=== PATIENT | female | born 2000 | race Caucasian/White ===

== ENCOUNTER 2022-01-09 17:59 | Emergency (ER) | payer BC, SELFPAY ==
[2022-01-09 18:23] VITALS: BP 155/98; PULSE 105; RESP 18; TEMP 36.9; O2SAT 97; BMI 21.0
--- NOTE | 2022-01-09 18:57 | ED.AMS ---
HPI - Altered Mental Status General Chief Complaint: Altered Mental Status Stated Complaint: Mental Health Time Seen by Provider: 01/09/22 18:13 History of Present Illness HPI narrative: This 21-year-old female comes in with her father for a mental health assessment. She took the vehicle from home and drove into the [facility]. She stopped the car and turned off but left it in drive. Her father states that she has not been sleeping for the past several nights and wonders if she is having a manic episode. The patient speaks about God and [place]. Her thoughts are rambling. She wants to create an embolism for herself and states that she wants to empower certain friends and make them bili in errors. Her thoughts are sometimes grandiose and certainly are disjointed. She denies taking any street drugs except for some weed. She denies using any alcohol. She is taking Zoloft as prescribed. She has under gone the beginnings of trans gender surgery. She had a vaginoplasty done a while back and to be regularly dilating herself. She denies being unsafe to herself. Her father is concerned about a distinct increase of random and grandiose thoughts along with lack of sleep. Related Data Home Medications Medication Instructions Recorded Confirmed estradiol PO TID 01/09/22 sertraline 50 mg tablet 25 mg PO DAILY 01/09/22 01/09/22 Allergies Allergy/AdvReac Type Severity Reaction Status Date / Time No Known Drug Allergies Allergy Verified 01/09/22 18:32 Review of Systems Status of ROS: Reports: 10 or more systems reviewed and unremarkable except as noted in History and below Narrative: Constitutional: No fevers, no weight gain or loss. Eyes: No discharge. No vision changes. HENT: No congestion, no sore throat, no ear pain. Cardiovascular: No chest pain, no palpitations. Respiratory: No shortness of breath, no wheezes, no cough. Gastrointestinal: No abdominal pain, no vomiting, no diarrhea. Genitourinary: No dysuria, no hematuria. Musculoskeletal: Normal range of motion. Skin: No rashes, no pruritis. Neurological: No dizziness, weakness, sensory change, speech change. Endo/Heme/Allergies: No bruising or bleeding. No polydipsia. Pysch: no suicidality. She does have insomnia recently. All other systems reviewed and are negative. PFSH PFSH Social History Smoking Status: Former smoker Do you use any of these nicotine containing products: None How often do you have a drink containing alcohol: never AUDIT-C Alcohol total score: 0 Non-prescribed substance use: marijuana (any form) service: No Exam Narrative: Exam Narrative: Constitutional: Well-developed, well-nourished, no acute distress. HEENT: Normocephalic, atraumatic. Neck: Normal range of motion. Nontender. Supple. Heart: Regular. No murmurs. Normal rate. Intact distal pulses. Lungs: Clear to auscultation. No chest discomfort. No wheezes, rhonchi, or rales. Abdomen: Normal bowel sounds. Nontender. No rebound tenderness. Genitalia: Deferred. Back: No midline tenderness. Normal range of motion. Extremities: Normal range of motion. No injury. Skin: Intact. No rash. Warm. No erythema or pallor. Neurologic: No altered sensation. No weakness. Alert and oriented. Psychiatric: She denies suicidality. She has random and sometimes grandiose thoughts. She switches between subjects freely. Her answers to my questions are disjointed such that it is very unclear what question she was trying to answer. Nursing notes and vitals signs are reviewed. Const: Vital Signs, click to edit/add: Vital Signs - 24 hr 01/09/22 18:23 01/09/22 21:36 01/09/22 23:48 Temperature 98.5 F 98.7 F 98.6 F Pulse Rate [Pulse Oximeter] 105 H 91 117 H Respiratory Rate 18 18 18 Blood Pressure [Le ft Upper Arm] 155/98 H 128/89 135/114 H Pulse Oximetry 97 98 98 Oxygen Delivery Me thod Room Air Room Air Room Air Course Vital Signs Vital signs: Initial Vital Signs Temperature 98.5 F 01/09/22 18:23 Temperature Source Temporal Artery Scan 01/09/22 18:23 Pulse Rate 105 H 01/09/22 18:23 Respiratory Rate 18 01/09/22 18:23 Blood Pressure 155/98 H 01/09/22 18:23 Blood Pressure Mean 117 01/09/22 18:23 Blood Pressure Position Sitting 01/09/22 18:23 Pulse Oximetry 97 01/09/22 18:23 Oxygen Delivery Method 01/09/22 18:23 Vital Signs Temperature 98.5 F 01/09/22 18:23 Pulse Rate 105 H 01/09/22 18:23 Respiratory Rate 18 01/09/22 18:23 Blood Pressure 155/98 H 01/09/22 18:23 Pulse Oximetry 97 01/09/22 18:23 Oxygen Delivery Method 01/09/22 18:23 Temperature 98.6 F 01/09/22 23:48 Pulse Rate 117 H 01/09/22 23:48 Respiratory Rate 18 01/09/22 23:48 Blood Pressure 135/114 H 01/09/22 23:48 Pulse Oximetry 98 01/09/22 23:48 Oxygen Delivery Method 01/09/22 23:48 MDM - Altered Mental Status MDM Narrative Medical decision making narrative: This patient comes in for psychiatric evaluation. She is exhibiting symptoms typical of a manic episode. She is pleasant and cooperative but has frequent discussions about God and [place] and some grandiose statements. She is not sleeping much at night. A [facility] mental assessment was conducted and arrangements are being made for transfer into an inpatient psych facility. The patient is not under a 72 hour hold but is holdable. She is agreeing with this plan and is cooperative. She is medically cleared for this to occur. This process continues at the end of my shift and care is transferred to the next ER physician. Lab Data Labs: Lab Results 01/09/22 01/09/22 01/09/22 Range/Units 20:45 21:00 21:00 WBC 8.48 (4.50-11.00) K/uL RBC 4.84 (4.00-5.20) m/uL Hgb 13.5 (12.0-16.0) gm/dL Hct 38.5 (33.0-51.0) % MCV 80 (80-100) fL MCH 28 (26-34) pg MCHC 35 (32-36) gm/dL RDW Coeff of Grecia 11.9 (11.5-15.5) % Plt Count 234 (140-440) K/uL Neut % (Auto) 63.7 (42.0-72.0) % Lymph % (Auto) 28.3 (20-44) % Bryan % (Auto) 7.4 (0.0-11.0) % Eos % (Auto) 0.4 (0.0-7.0) % Baso % (Auto) 0.2 (0.0-3.0) % Neut # (Auto) 5.40 (1.7-7.0) K/uL Lymph # (Auto) 2.40 (0.90-2.90) K/uL Bryan # (Auto) 0.60 (0.00-0.90) K/UL Eos # (Auto) 0.03 (0.00-0.50) K/uL Baso # (Auto) 0.02 (0.00-0.30) K/uL Abs Immat Gran (auto) 0.00 (0.00-0.30) K/uL Sodium 137 (135-149) mmol/L Potassium 3.7 (3.6-5.1) mmol/L Chloride 101 (96-114) mmol/L Carbon Dioxide 23 (20-32) mmol/L BUN 7 (5-24) mg/dL Creatinine 0.6 (0.6-1.2) mg/dL Estimated Creat Clear 140.39 Estimated GFR 133 ml/min Glucose 103 (60-115) mg/dL Calcium 9.7 (8.7-10.8) mg/dL TSH (0.270-4.20) uIU/mL HCG, Qual (Negative) Urine Opiates Screen (Negative) Ur Oxycodone Screen (Negative) Urine Methadone Screen (Negative) Ur Propoxyphene Screen (Negative) Acetaminophen < 10.0 L (10.0-30.0) ug/mL Ur Barbiturates Screen (Negative) U Tricyclic Antidepress (Negative) Ur Phencyclidine Scrn (Negative) Ur Amphetamines Screen (Negative) U Methamphetamines Scrn (Negative) U Benzodiazepines Scrn (Negative) Urine Cocaine Screen (Negative) U Marijuana (THC) Screen (Negative) Ur Drug Screen Comment SARS-CoV-2 (PCR) Negative SARS-CoV-2 (Negative) 01/09/22 01/09/22 01/09/22 Range/Units 21:00 22:10 23:10 WBC (4.50-11.00) K/uL RBC (4.00-5.20) m/uL Hgb (12.0-16.0) gm/dL Hct (33.0-51.0) % MCV (80-100) fL MCH (26-34) pg MCHC (32-36) gm/dL RDW Coeff of Grecia (11.5-15.5) % Plt Count (140-440) K/uL Neut % (Auto) (42.0-72.0) % Lymph % (Auto) (20-44) % Bryan % (Auto) (0.0-11.0) % Eos % (Auto) (0.0-7.0) % Baso % (Auto) (0.0-3.0) % Neut # (Auto) (1.7-7.0) K/uL Lymph # (Auto) (0.90-2.90) K/uL Bryan # (Auto) (0.00-0.90) K/UL Eos # (Auto) (0.00-0.50) K/uL Baso # (Auto) (0.00-0.30) K/uL Abs Immat Gran (auto) (0.00-0.30) K/uL Sodium (135-149) mmol/L Potassium (3.6-5.1) mmol/L Chloride (96-114) mmol/L Carbon Dioxide (20-32) mmol/L BUN (5-24) mg/dL Creatinine (0.6-1.2) mg/dL Estimated Creat Clear Estimated GFR ml/min Glucose (60-115) mg/dL Calcium (8.7-10.8) mg/dL TSH 2.330 (0.270-4.20) uIU/mL HCG, Qual Negative (Negative) Urine Opiates Screen Negative (Negative) Ur Oxycodone Screen Negative (Negative) Urine Methadone Screen Negative (Negative) Ur Propoxyphene Screen Negative (Negative) Acetaminophen (10.0-30.0) ug/mL Ur Barbiturates Screen Negative (Negative) U Tricyclic Antidepress Negative (Negative) Ur Phencyclidine Scrn Negative (Negative) Ur Amphetamines Screen Negative (Negative) U Methamphetamines Scrn Negative (Negative) U Benzodiazepines Scrn Negative (Negative) Urine Cocaine Screen Negative (Negative) U Marijuana (THC) Screen POSITIVE A* (Negative) Ur Drug Screen Comment See Note SARS-CoV-2 (PCR) (Negative) Discharge Plan Discharge Clinical Impression: Manic episode Condition: Unchanged Prescriptions: No Action sertraline 50 mg tablet 25 mg PO DAILY estradiol PO TID Follow Up/Referrals: Provider,Not a Local [Primary Care Provider] -
[2022-01-09 21:06] LABS: Basophils Absolute Auto 0.02 K/uL (0.00-0.30); Basophils Percent Auto 0.2 % (0.0-3.0); Eosinophils Absolute Auto 0.03 K/uL (0.00-0.50); Eosinophils Percent Auto 0.4 % (0.0-7.0); Hematocrit 38.5 % (33.0-51.0); Hemoglobin* 13.5 gm/dL (12.0-16.0); Lymphocytes Percent Auto 28.3 % (20-44); Mean Corpuscular HGB Conc 35 gm/dL (32-36); Mean Corpuscular Hemoglobin 28 pg (26-34); Mean Corpuscular Volume 80 fL (80-100); Monocytes Percent Auto 7.4 % (0.0-11.0); Neutrophils Percent Auto 63.7 % (42.0-72.0); Platelet Count* 234 K/uL (140-440); RDW Coefficient of Variation % 11.9 % (11.5-15.5); Red Blood Count 4.84 m/uL (4.00-5.20); White Blood Count* 8.48 K/uL (4.50-11.00)
[2022-01-09 21:17] LABS: Slide Review Reflex No
[2022-01-09 21:19] LABS: Potassium* 3.7 mmol/L (3.6-5.1); Sodium* 137 mmol/L (135-149)
[2022-01-09 21:22] LABS: Blood Urea Nitrogen* 7 mg/dL (5-24); Calcium* 9.7 mg/dL (8.7-10.8); Carbon Dioxide* 23 mmol/L (20-32); Creatinine* 0.6 mg/dL (0.6-1.2); Est. Creatinine Clearance* 140.39; Estimated Glomerular Filt Rate 133 ml/min; Glucose* 103 mg/dL (60-115)
[2022-01-09 21:36] VITALS: BP 128/89; PULSE 91; RESP 18; TEMP 37.1; O2SAT 98
[2022-01-09 21:42] LABS: Acetaminophen* < 10.0 ug/mL (10.0-30.0)
[2022-01-09 21:58] LABS: SARS PCR* Negative SARS-CoV-2 (Negative)
[2022-01-09 22:16] LABS: Chloride* 101 mmol/L (96-114)
[2022-01-09 22:35] LABS: Amphetamine Screen Urine Negative (Negative); Barbiturate Screen Urine Negative (Negative); Benzodiazepines Screen Urine Negative (Negative); Cocaine Screen Urine Negative (Negative); Methadone Screen Urine Negative (Negative); Methamphetamines Screen Urine Negative (Negative); Opiate Screen Urine Negative (Negative); Oxycodone Screen Urine Negative (Negative); Phencyclidine Screen Urine Negative (Negative); Tricyclic Antidepressant Urine Negative (Negative)
[2022-01-09 23:04] LABS: Cannabinoid Screen Urine POSITIVE (Negative)
[2022-01-09 23:21] LABS: HCG Qualitative* Negative (Negative)
[2022-01-09 23:48] VITALS: BP 135/114; PULSE 117; RESP 18; TEMP 37; O2SAT 98
--- NOTE | 2022-01-10 00:56 | PC.NURSE ---
[facility] called back, psychiatrist declined patient at this time stating they are unable to meet her needs. Recommended initiating a mood stabilizer and re-evaluating in 12 hours for reassessment of placement in [place].
[2022-01-10] MEDS: DIVALPROEX DELAYED RELEASE 250 MG TABLET PO ×2 (01:19→15:30)
--- NOTE | 2022-01-10 05:36 | PC.NURSE ---
Received call from [facility], concerned over poor intake, requesting documentation of two meals consumed by this afternoon for consideration of acceptance.
--- NOTE | 2022-01-10 06:06 | ED.NURSE ---
Patient opens room door with david on top of hand stating she bears the shay of Robert, when asking what she means she states Robert Nuts repetitively, pt then starts talking about numerous gods,wanting to create good art, become a middle class citizen, and pacing the room while watching tv. pt takes words from the tv and starts rambling merging things together into her sentences from around the room. pt walks out of room numerous times but cooperatively goes back into room when asked. pt asking for water, water given and breakfast order written down for 0700. pt given paper and pen so she can create art, pt sits down and starts to draw, pt continues to ramble even when in room alone.
[2022-01-10] MEDS: LORazepam 1 MG TABLET PO ×2 (06:40→18:45)
[2022-01-10 07:15] VITALS: BP 106/78; PULSE 102; RESP 26; TEMP 37.6; O2SAT 96
--- NOTE | 2022-01-10 07:37 | ED.NURSE ---
is finally sleeping at present. when this nurse arrived on duty at 0700, pt was sitting on the edge of the bed talking to the tv. has flight of ideas and was talking with no direct concept of what is actually taking place with reality in her current state. no real eye contact or appropriate interaction with nurse. was holding a cup. did not move during the check.
[2022-01-10 12:25] LABS: Ethanol* < 0.01 % (0.01-0.03)
--- NOTE | 2022-01-10 14:10 | ED.NURSE ---
hs been sleeping. does repositions self.
--- NOTE | 2022-01-10 14:19 | PC.SOCIAL ---
Social work: Earlier today, checked availability of in-pt mental health beds in the state. Per RN notes, has already been declined by [facility]. [facility] can assess pt again later today and [facility] can assess pt if there is documentation of her eating at least two meals. Called [facility] and was informed there was a possible bed at [facility]. Faxed all requested information and received a call back from [facility] stating they can not accept pt due to the acuity of the patients already on their unit.
[2022-01-10 15:46] VITALS: BP 108/96; PULSE 90; RESP 18; TEMP 36.4; O2SAT 100
--- NOTE | 2022-01-10 16:00 | ED.NURSE ---
did take depakote without any problems. was told to dilate self and states Yes I need to do that. continues to speak to self and talks about pyramid scheme that will inhabit the earth. stares off. is redirectable. was given food-chicken tenders-albanian fries. will not eat at present, mother called and she will be in later.
[2022-01-10] MEDS: estradioL 1 MG TABLET 2 MG PO (17:17)
[2022-01-10] MEDS: SERTRALINE 50 MG TABLET 25 MG PO (17:17)
--- NOTE | 2022-01-10 18:00 | ED.NURSE ---
did eat occitan fries, cookie, milk. was given ensure.
--- NOTE | 2022-01-10 19:00 | ED.NURSE ---
was telling out about things taking over the world. is speaking of unintelligible words. was yelling at tv. dr samuels was in to see and will medicate po. is open to taking medication.
[2022-01-10] MEDS: OLANZapine 5 MG TAB.RAPDIS 10 MG PO (19:20)
--- NOTE | 2022-01-10 21:09 | ED.NURSE ---
Pt did complete dilation process this evening independently. Pt dad and brother were here, dad did speak with Dr. Rodriguez. Pt is sleeping now, vss, admin 2100 medications later after midnight per Dr. Rodriguez.
[2022-01-10 21:12] VITALS: BP 106/68; PULSE 92; RESP 16; TEMP 36.9; O2SAT 96
[2022-01-11] MEDS: estradioL 1 MG TABLET 2 MG PO ×2 (01:38→09:00)
[2022-01-11] MEDS: DIVALPROEX DELAYED RELEASE 250 MG TABLET PO ×2 (01:39→09:00)
[2022-01-11 08:28] VITALS: BP 100/65; PULSE 68; RESP 18; TEMP 36.6; O2SAT 97
--- NOTE | 2022-01-11 08:42 | ED.NURSE ---
was able to eat, had eggs, milk, prado. did need persuading. did call [facility] and they accepted pt by dr thomas. 72 hr hold was placed per dr jose. notice to pt of rights under emergency hospitalization read to pt. will be transported at 1030.
--- NOTE | 2022-01-11 09:03 | ED.NURSE ---
mother is here and shankar is receptive to her being here. she is doing the dilation treatment now.
--- NOTE | 2022-01-11 09:51 | ED.NURSE ---
father has been informed per shannon (x ) that she will be transferred to [facility] ~1030.
[2022-01-11 10:00] VITALS: BP 105/67; PULSE 82; RESP 12; TEMP 36.3; O2SAT 97
--- NOTE | 2022-01-11 10:10 | ED.NURSE ---
ems is here. all belongings, including phone in bag with proof inspector.
--- NOTE | 2022-01-11 10:35 | ED.NURSE ---
report was called to yesica verdin at [facility]. was informed about her needing to dilate herself twice a day and her medication that she had this am.
== END 2022-01-11 10:25 | disposition home or self-care (01) ==
PROVIDERS: Emergency Medicine Emergency Medical Services; Family Medicine; Emergency Provider Family Medicine
DX: F30.2 Manic episode, severe with psychotic symptoms (principal)
CPT/HCPCS: 36415; 80048; 80143; 80306; 82077; 84443; 84703; 85025; 87635; 99284; 99285; A9270

== ENCOUNTER 2023-06-08 10:01 | Emergency (ER) | payer BC, SELFPAY ==
[2023-06-08 10:11] VITALS: BP 132/87; PULSE 102; RESP 18; TEMP 36.8; O2SAT 97; BMI 18.2
[2023-06-08 11:42] LABS: Basophils Absolute Auto 0.01 K/uL (0.00-0.30); Basophils Percent Auto 0.1 % (0.0-3.0); Eosinophils Absolute Auto 0.04 K/uL (0.00-0.50); Eosinophils Percent Auto 0.4 % (0.0-7.0); Hematocrit 39.9 % (33.0-51.0); Hemoglobin* 13.7 gm/dL (12.0-16.0); Immature Granulocytes Abs Auto 0.01 K/uL (0.00-0.30); Immature Granulocytes Pct Auto 0.1 %; Lymphocytes Percent Auto 18.2 % (20-44); Mean Corpuscular HGB Conc 34 gm/dL (32-36); Mean Corpuscular Hemoglobin 29 pg (26-34); Mean Corpuscular Volume 84 fL (80-100); Monocytes Percent Auto 4.1 % (0.0-11.0); Neutrophils Percent Auto 77.1 % (42.0-72.0); Platelet Count* 202 K/uL (140-440); RDW Coefficient of Variation % 12.1 % (11.5-15.5); Red Blood Count 4.76 m/uL (4.00-5.20); White Blood Count* 9.35 K/uL (4.50-11.00)
[2023-06-08] MEDS: LACTATED RINGERS 1000 ML 1,000 ML IV (11:44)
[2023-06-08] MEDS: ONDANSETRON 2 MG/ML inj 4 MG IVP (11:44)
[2023-06-08 11:47] LABS: Slide Review Reflex No
--- NOTE | 2023-06-08 11:59 | ED_ITS ---
HPI - Nausea/Vomiting/Diarrhea General Date Seen: 06/08/23 Chief complaint: Nausea/Vomiting Stated complaint: Vomiting, new medication Time Seen by Provider: 06/08/23 10:40 Source: patient Mode of arrival: ambulatory Limitations: no limitations History of Present Illness HPI Narrative: Patient is a 22-year-old female presenting to the emergency department for nausea and vomiting. She states the symptoms have been going on for the past 2 days. She thinks is related to her multiple recent med changes. She has at multiple psychiatric med changes for her bipolar disease. He states the last med change was a couple days ago can remember which med was changed to. She states since then she has been vomiting quite a bit and has not been able to keep much p.o. intake down at this time. She states just about every time she tries to eat or drink anything she vomits. He is still feeling nauseated at this time but is not taking anything for the nausea. Is also complaining about some diffuse abdominal pain. Denies dysuria, diarrhea, constipation, chest pain, shortness of breath, lightheadedness, dizziness, fevers, chills. No previous abdominal surgeries Related Data Home Medications Medication Instructions Recorded Confirmed sertraline 50 mg tablet 25 mg PO DAILY 01/09/22 01/09/22 estradiol 2 mg tablet 2 mg PO TID 01/10/22 01/10/22 aripiprazole 10 mg tablet 10 mg PO DAILY 06/08/23 06/08/23 Previous Rx's Medication Instructions Recorded ondansetron 4 mg disintegrating 4 mg PO Q6H #20 tabs 06/08/23 tablet Allergies Allergy/AdvReac Type Severity Reaction Status Date / Time No Known Drug Allergies Allergy Verified 01/09/22 18:32 Review of Systems Status of ROS: Reports: 10 or more systems reviewed and unremarkable except as noted in History and below PFSH PFSH Social History Smoking Status: Former smoker Do you use any of these nicotine containing products: None How often do you have a drink containing alcohol: never AUDIT-C Alcohol total score: 0 Non-prescribed substance use: marijuana (any form) service: No Exam Narrative: Exam Narrative: Const: Well-nourished, Well-developed, in mild distress Eyes: PERRL, no conjunctival injection, and symmetrical lids HENT: Atraumatic external nose and ears. Moist mucous membranes. Neck: Symmetric, trachea midline, No thyromegaly. CVS: RRR, No murmurs or gallops. Peripheral pulses 2+ and equal in all extremities RESP: Unlabored respiratory effort. Clear to auscultation bilaterally. GI: Diffuse mild abdominal tenderness, Nondistended, No rebound or guarding. MSK:Extremities w/o deformity, Normal Active ROM Skin: Warm, Dry. No rashes or lesions. Neuro: Normal Muscle tone, No focal neurological deficits. Psych: Awake, Alert, & Oriented x3. Appropriate mood and affect. Const: Vital Signs, click to edit/add: Vital Signs - 24 hr 06/08/23 10:11 Temperature 98.2 F Pulse Rate [Right Pulse Oximeter] 102 H Respiratory Rate 18 Blood Pressure [Ri ght Upper Arm] 132/87 Pulse Oximetry 97 Oxygen Delivery Me thod Room Air Course Vital Signs Vital signs: Initial Vital Signs Temperature 98.2 F 06/08/23 10:11 Temperature Source Temporal Artery Scan 06/08/23 10:11 Pulse Rate 102 H 06/08/23 10:11 Respiratory Rate 18 06/08/23 10:11 Blood Pressure 132/87 06/08/23 10:11 Blood Pressure Mean 102 06/08/23 10:11 Blood Pressure Position Sitting 06/08/23 10:11 Pulse Oximetry 97 06/08/23 10:11 Oxygen Delivery Method Room Air 06/08/23 10:11 Vital Signs Temperature 98.2 F 06/08/23 10:11 Pulse Rate 102 H 06/08/23 10:11 Respiratory Rate 18 06/08/23 10:11 Blood Pressure 132/87 06/08/23 10:11 Pulse Oximetry 97 06/08/23 10:11 Oxygen Delivery Method Room Air 06/08/23 10:11 Temperature 98.2 F 06/08/23 10:11 Pulse Rate 102 H 06/08/23 10:11 Respiratory Rate 18 06/08/23 10:11 Blood Pressure 132/87 06/08/23 10:11 Pulse Oximetry 97 06/08/23 10:11 Oxygen Delivery Method Room Air 06/08/23 10:11 Medications Administered Medications: Generic Name Dose Route Start Last Admin Trade Name Freq PRN Reason Stop Dose Admin Sodium Chloride 1,000 mls @ 1,000 mls/hr 06/08/23 14:15 06/08/23 14:08 0.9 % Sodium Chloride 1000 Ml IV 06/08/23 15:14 1,000 mls/hr .Q1H GLENROY Administration Discontinued Medications Generic Name Dose Route Start Last Admin Trade Name [place] PRN Reason Stop Dose Admin Lactated Ringer's 1,000 mls @ 1,000 mls/hr 06/08/23 11:12 06/08/23 12:17 Lactated Ringers 1000 Ml IV 06/08/23 12:11 Infused .Q1H ONE Infusion Metoclopramide HCl 10 mg 06/08/23 13:13 06/08/23 13:23 Metoclopramide Hcl 5 Mg/Ml Inj IVP 06/08/23 13:14 10 mg ONCE ONE Administration Ondansetron HCl 4 mg 06/08/23 11:12 06/08/23 11:44 Ondansetron 2 Mg/Ml Inj IVP 06/08/23 11:13 4 mg ONCE ONE Administration MDM - Nausea/Vomiting/Diarrhea MDM Narrative Medical decision making narrative: Patient is a 22-year-old female presenting to emergency department for nausea and vomiting. Zofran given she also be given fluids for her dehydration. Ordered CBC, CMP, COVID/flu/RSV, test, lipase. Patient has some improvement in her nausea after the fluids and Zofran. It then quickly came back though. Her lab work shows no concerning findings. No obvious signs of infection. Her urine does have ketones which does show signs of dehydration. I gave her Reglan which helped a little bit but she still was having nausea. Her mother is now in the room and in asked again about surgery patient states she has had no abdominal surgeries but has had a vaginoplasty. With this surgical history what do a CT scan to rule out any concerning abnormalities. The CT shows no concerning findings. There is some relative thickening of the urinary bladder but she is not having no signs of a UTI and urine shows no signs of UTI. Patient will be given other L of fluid event plan is for discharge. Family is agreeable to this plan. Lab Data Labs: Lab Results 06/08/23 06/08/23 Range/Units 11:32 12:42 WBC 9.35 (4.50-11.00) K/uL RBC 4.76 (4.00-5.20) m/uL Hgb 13.7 (12.0-16.0) gm/dL Hct 39.9 (33.0-51.0) % MCV 84 (80-100) fL MCH 29 (26-34) pg MCHC 34 (32-36) gm/dL RDW Coeff of Grecia 12.1 (11.5-15.5) % Plt Count 202 (140-440) K/uL Neut % (Auto) 77.1 H (42.0-72.0) % Lymph % (Auto) 18.2 L (20-44) % Sullivan % (Auto) 4.1 (0.0-11.0) % Eos % (Auto) 0.4 (0.0-7.0) % Baso % (Auto) 0.1 (0.0-3.0) % Neut # (Auto) 7.20 H (1.7-7.0) K/uL Lymph # (Auto) 1.70 (0.90-2.90) K/uL Sullivan # (Auto) 0.40 (0.00-0.90) K/UL Eos # (Auto) 0.04 (0.00-0.50) K/uL Baso # (Auto) 0.01 (0.00-0.30) K/uL Abs Immat Gran (auto) 0.01 (0.00-0.30) K/uL Imm/Tot Granulo (auto) 0.1 % Sodium 136 (135-149) mmol/L Potassium 4.0 (3.6-5.1) mmol/L Chloride 102 (96-114) mmol/L Carbon Dioxide 22 (20-32) mmol/L Anion Gap 12 (7-15) mEq/L BUN 10 (5-24) mg/dL Creatinine 0.6 (0.5-1.5) mg/dL Estimated Creat Clear 128.52 Estimated GFR 132 ml/min Glucose 105 (60-115) mg/dL Calcium 9.9 (8.4-10.6) mg/dL Total Bilirubin 0.6 (0.1-1.5) mg/dL AST 20 (12-35) U/L ALT 11 (4-35) U/L Alkaline Phosphatase 60 (40-150) U/L Total Protein 8.2 (6.0-8.3) g/dL Albumin 4.8 (3.3-5.0) g/dL Lipase 136 (23-300) U/L HCG, Qual Negative (Negative) Urine Color Yellow (Yellow) Urine Appearance Clear (Clear) Urine pH 6.0 (5.0-8.5) Ur Specific [place] 1.020 (1.000-1.030) Urine Protein Negative (Negative) Urine Glucose (UA) Negative (Negative) Urine Ketones 2+ A (Negative) Urine Blood Negative (Negative) Urine Nitrite Negative (Negative) Urine Bilirubin Negative (Negative) Urine Urobilinogen 0.2 (0.2-1.0) Ur Leukocyte Esterase Negative (Negative) Urine RBC 0-2 (0-2) Urine WBC 2-5 (0-5) Ur Squamous Epith Cells Few (None-Few) Urine Bacteria None (None) Urine HCG, Qual Cancelled SARS-CoV-2 (PCR) Negative SARS-CoV-2 (Negative) Influenza Type A (PCR) Negative PCR FLU A (Negative) Influenza Type B (PCR) Negative PCR FLU B (Negative) RSV (PCR) Negative PCR RSV (Negative) Imaging Data CT scan abdomen pelvis: Radiologist's impression: 1. Spleen is at the upper limits of normal in size. 2. Gallstone 3. Relative thickening of the wall of the urinary bladder; the exact nature and clinical significance unclear; this need to be correlated with clinical symptomatology. 4. Negative CT abdomen and pelvis with intravenous contrast otherwise. Please note that all CT scans at this facility use dose modulation, iterative reconstruction, and/or weight-based dosing when appropriate to reduce radiation dose to as low as reasonably achievable. Dictated by Lexx Murguia MD @ 06/08/2023 1:37:46 PM Discharge Plan Discharge Clinical Impression: Gastroenteritis, Dehydration Patient Disposition: Home, Self-Care Condition: Improved Instructions: Acute Nausea and Vomiting (DC) Additional Instructions: With take the Zofran as needed for nausea. Make she stay well hydrated. Return to emergency department for new worsening symptoms. If symptoms persist you can follow up with your primary care provider. Prescriptions: New ondansetron 4 mg tablet,disintegrating 4 mg PO Q6H Qty: 20 0RF No Action sertraline 50 mg tablet 25 mg PO DAILY estradiol 2 mg tablet 2 mg PO TID aripiprazole 10 mg tablet 10 mg PO DAILY Follow Up/Referrals: Ruchi Lee MD [Primary Care Provider] - Stand Alone Forms: [employer] Info Instructions
[2023-06-08 12:03] LABS: Albumin* 4.8 g/dL (3.3-5.0); Chloride* 102 mmol/L (96-114)
[2023-06-08 12:04] LABS: Sodium* 136 mmol/L (135-149)
[2023-06-08 12:06] LABS: Alkaline Phosphatase* 60 U/L (40-150); Anion Gap 12 mEq/L (7-15); Aspartate Amino Transferase* 20 U/L (12-35); Bilirubin Total* 0.6 mg/dL (0.1-1.5); Carbon Dioxide* 22 mmol/L (20-32); Creatinine* 0.6 mg/dL (0.5-1.5); Est. Creatinine Clearance* 128.52; Estimated Glomerular Filt Rate 132 ml/min; Total Protein* 8.2 g/dL (6.0-8.3)
[2023-06-08 12:07] LABS: Alanine Aminotransferase* 11 U/L (4-35); Blood Urea Nitrogen* 10 mg/dL (5-24); Calcium* 9.9 mg/dL (8.4-10.6); Glucose* 105 mg/dL (60-115); Lipase* 136 U/L (23-300)
[2023-06-08 12:16] LABS: HCG Qualitative Serum* Negative (Negative)
[2023-06-08 12:21] LABS: PCR FLU A Negative PCR FLU A (Negative); PCR FLU B Negative PCR FLU B (Negative); PCR RSV Negative PCR RSV (Negative); SARS PCR* Negative SARS-CoV-2 (Negative)
[2023-06-08 12:50] LABS: Appearance Urine Clear (Clear); Bilirubin Urine Negative (Negative); Blood Urine Negative (Negative); Color Urine Yellow (Yellow); Glucose Urine Negative (Negative); Ketones Urine 2+ (Negative); Leukocyte Esterase Urine Negative (Negative); Nitrite Urine Negative (Negative); Protein Urine Negative (Negative); Urobilinogen Urine 0.2 (0.2-1.0)
--- NOTE | 2023-06-08 13:13 | CT_ITS ---
Patient: ANDIE ORTIZ Facility:?[facility] Patient ID:?[id number] Site Patient ID:?[id number]. Site :?[id number] Study:?CT-Abdomen/Pelvis W/ 58CC [id number] 1:30:00 PM Ordering Physician:Nadiya Birmingham Final Report: INDICATION: Abdominal pain; previous vaginoplasty. COMPARISON: None. TECHNIQUE: CT abdomen and pelvis with intravenous contrast; coronal and sagittal reformats. FINDINGS: No abnormal intra pulmonary nodular densities through the lung bases. No evidence of pleural effusion. Normal size cardiac silhouette without any pericardial effusion. No focal hepatic or splenic pathology. Mild prominence of the spleen measuring 9.7 cm in the maximum AP dimension and 9.4 cm in the maximum vertical dimension. No pancreatic pathology. Cholelithiasis. No adrenal pathology. No kidney stones or obstructive uropathy. No retroperitoneal lymphadenopathy. No evidence of abdominal or pelvic ascites. No pneumoperitoneum or intestinal obstruction. Thickening of the wall of the urinary bladder; the exact nature and clinical significance unclear. No mass lesions in the pelvis. IMPRESSION: 1. Spleen is at the upper limits of normal in size. 2. Gallstone 3. Relative thickening of the wall of the urinary bladder; the exact nature and clinical significance unclear; this need to be correlated with clinical symptomatology. 4. Negative CT abdomen and pelvis with intravenous contrast otherwise. Please note that all CT scans at this facility use dose modulation, iterative reconstruction, and/or weight-based dosing when appropriate to reduce radiation dose to as low as reasonably achievable. Dictated by Lexx Murguia MD @ 06/08/2023 1:37:46 PM Signed by:?Lexx Murguia MD @06/08/2023 1:37:46 PM (Electronic Signature)
[2023-06-08 13:14] LABS: RBC Urine 0-2 (0-2); Squamous Epithelial Cell Urine Few (None-Few)
[2023-06-08] MEDS: METOCLOPRAMIDE HCL 5 MG/ML INJ 10 MG IVP (13:23)
[2023-06-08] MEDS: 0.9 % SODIUM CHLORIDE 1000 ml 1,000 ML IV (14:08)
== END 2023-06-08 14:27 | disposition home or self-care (01) ==
PROVIDERS: Emergency Provider Student in an Organized Health Care Education/Training Program; PCP Family Medicine
DX: K52.9 Noninfective gastroenteritis and colitis, unspecified (principal); E86.0 Dehydration
CPT/HCPCS: 36415; 74177; 80053; 81001; 81025; 83690; 84703; 85025; 87631; 96374; 96375; 99283; 99284; 99285; J2405; J2765; J7030; J7120; Q9967

== ENCOUNTER 2023-07-27 18:31 | Outpatient (CLI) | payer OTHER, BC, SELFPAY ==
--- OUTSIDE RECORDS SUMMARY | 2023-08-01 08:03 | XMS_ITS | Clinical Summary ---
Author Name Unknown Organization [facility] Address [address] [place] [address] Care Team Providers Care Car Worker Name Role Phone Sandra Baird DNP, RESEARCH MANAGEMENT ASSOCIATE, LIBRARY ASSOCIATE Primary Car e Provider Source Comments You are receiving this document as you are listed as the primary care provider,follow-up provider, or the patient has been referred to you for consultation.This is in compliance with the Medicare and[facility] E[facility] Incentive Program,which states Providers who transition their patient to another setting of careor provider of care or refers their patient to another provider of care shouldprovide summary care record for each transition of care or referral. [facility] Social History Tobacco Use Types Packs/Day Years Used Date Smoking Tobacco: Never Assessed Sex and Gender Information Value Date Recorded Sex Assigned at Not on file Gender Identity Not on file Sexual Orientation Not on file Last Filed Vital Signs Vital Sign Reading Time Taken Comments Blood Pressure - - Pulse - - Temperature - - Respiratory Rate - - Oxygen Saturation - - Inhaled Oxygen Concentration - - Weight 54.4 kg (120 lb) 05/15/2021 11:42 AM MEDICAL ADVISOR Height 170.2 cm (5' 7) 05/15/2021 11:42 AM MEDICAL ADVISOR Body Mass Index 18.79 05/15/2021 11:42 AM MEDICAL ADVISOR Plan of Treatment Health Maintenance Due Date Last Done Comments Chlamydia 2002 Hep C Screening (Preventive Services) 2002 HPV Vaccine (1 - 3-dose series) 2017 HIV Screening (Preventive Services) 2018 Adult Preventive Visit 2020 DTaP/Tdap/Td (1 - Tdap) 2021 HepB (1) 2021 COVID-19 Vaccine (3 - 2022-2 4 season) 2022 04/20/2021, 09/03/2020 Influenza (#1) 2022 Zoster/Shingles (1 of 2) 2052 HepA Aged Out No longer eligi ble based on patient's age to complete this topic Hib Aged Out No longer eligi ble based on patient's age to complete this topic IPV (Polio) Aged Out No longer eligi ble based on patient's age to complete this topic MCV4 Aged Out No longer eligi ble based on patient's age to complete this topic Pneumococcal Aged Out No longer eligi ble based on patient's age to complete this topic Care Teams Car Worker Relationship Specialty Start Date End Date Sandra Baird, DNP, RESEARCH MANAGEMENT ASSOCIATE, LIBRARY ASSOCIATE [address] [address] [id number] PCP - General Nurse Practitioner 12/13/20
--- OUTSIDE RECORDS SUMMARY | 2023-08-01 08:03 | XMS_ITS | Referral Summary ---
Author Name Unknown Organization [facility] Address [address] [place] [address] Care Team Providers Care Ldr Rn Name Role Phone Rusty Chilel Unavailable Brendan Larkin MD Unavailable Sandra Baird APRN CLINICAL DATA MANAGEMENT MANAGER Primary Care Prov ider Cynthia Smiley MD Unavailable [phone] Jagdish Sibley MD Unavailable [phone] Sandra Baird APRN CLINICAL DATA MANAGEMENT MANAGER Unavailable + Chaya Mora Unavailable Unavailable Ariel Mae LGSW Unavailable Unavailable Tu Briscoe MD Unavailable [phone] Encounters Date Type Department Care Team Description 06/24/2023 Telephone [facility] Plastic and Reconstructive Surgery [address] [address] Chaya Mora Care Team 06/12/2023 MyC Medical Advice [facility] Plastic and Reconstructive Surgery [address] [place] [address] Chaya Mora 06/11/2023 Telephone [facility] Plastic Surgery [address], [address] [place] [address] Freddie Santos MD Appointment (Gender Care); Care Team from Last 3 Months Allergies No known active allergies Medications Medication Sig Dispensed Refills Start Date End Date Status sertraline (ZOLOFT) 50 MG tabletIndications: 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 and adult,Depression, unspecified depression type Take 1 tablet (50 mg) by mouth daily 90 tablet 1 07/10/2021 Active Additional Information Patient not taking.Reported on 01/23/2022 estradiol (ESTRACE) 2 MG tabletIndications: 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 and adult Take 3 tablets (6 mg) by mouth daily 6mg per day (HOLD/ do not start until 10/05/21) 270 tablet 1 09/26/2021 Active spironolactone (ALDACTONE) 100 MG tabletIndications: Transgender Female Take 2 tablets (200 mg) by mouth daily (HOLD/ do not start until 10/05/21) 180 tablet 09/26/2021 Active acetaminophen (TYLENOL) 325 MG tabletIndications: Postoperative pain Take 2 tablets (650 mg) by mouth every 4 hours as needed for pain 120 tablet 09/26/2021 Active ibuprofen (ADVIL/MOTRIN) 600 MG tabletIndications: Postoperative pain Take 1 tablet (600 mg) by mouth every 8 hours as needed for moderate pain (or headache) 30 tablet 09/26/2021 Active methocarbamol (ROBAXIN) 500 MG tabletIndications: Postoperative pain Take 1 tablet (500 mg) by mouth 4 times daily as needed for muscle spasms (abdominal pain) 30 tablet 09/26/2021 Active Additional Information Patient not taking.Reported on 01/23/2022 scopolamine (TRANSDERM) 1 MG/3DAYS 72 hr patchIndications:P ostoperative pain Place 1 patch onto the skin every 72 hours As needed for nausea 2 patch 09/26/2021 Active Additional Information Patient not taking.Reported on 01/23/2022 oxyCODONE (ROXICODONE) 5 MG tabletIndications: Postoperative pain Take 1 tablet (5 mg) by mouth every 4 hours as needed for moderate to severe pain 18 tablet 09/27/2021 Active Additional Information Patient not taking.Reported on 10/11/2021 senna-docusate (SENOKOT-S/PERICOL CLAUDIO) 8.6-50 MG tabletIndications: Postoperative pain Take 1-2 tablets by mouth 2 times daily To prevent/treat constipation 60 tablet 09/27/2021 Active lithium (ESKALITH) 600 MG capsule Take 1 capsule (600 mg) by mouth At Bedtime 01/19/2022 Active Active Problems Problem Noted Date Diagnosed Date Right groin pain 06/02/2022 Overview: Added automatically from request for surgery Gender dysphoria 09/21/2021 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 and adult 021 Depression, unspecified depression type 06/14/19 21 Immunizations Name Administration Dates Next Due COVID-19 MONOVALENT 12+ (Pfizer) 04/20/2021 TDAP Vaccine (Boostrix) 05/30/2021 Social History Tobacco Use Types Packs/Day Years Used Date Smoking Tobacco: Never Smokeless Tobacco: Never Tobacco Cessation:Counseling Given: Not Answered Alcohol Use Standard Drinks/Week Comments Not Currently 0 (1 standard drink = 0.6 oz pur e alcohol) occ AUDIT-C Answer Date Recorded Q1: How often do you have a drink containing alc ohol? Never 02/04/2020 Average Number of Drinks Not on file 020 Frequency of Binge Drinking Not on file 01/14 PHQ-2 Answer Date Recorded PHQ-2 Score 2 09/18/2021 Exercise Vital Sign Answer Date Recorde d On average, how many days pe r week do you engage in moderate to strenuous exercise (like a brisk walk)? 5 days 07/10/2021 On average, how many minutes do you engage in exercise at this level? 30 min 07/10/2021 Hunger Vital Sign Answer Date Recorded Within the past 12 months, y ou worried that your food would run out before you got the money to buy more. Sometimes true Within the past 12 months, t he food you bought just didn't last and you didn't have money to get more. Never true PRAPARE - Transportation Answer Date Re corded In the past 12 months, has l ack of transportation kept you from medical appointments or from getting medications? No 07/10/2021 Lack of Transportation (Non-Medical) Not on file 07/10/2021 Housing Stability Vital Sign Answer Nuno e Recorded In the last 12 months, was t here a time when you were not able to pay the mortgage or rent on time? No 07/10/2021 Number of Places Lived in the Last Year Not on f ile 07/10/2021 In the last 12 months, was t here a time when you did not have a steady place to sleep or slept in a long term (including now)? No 07/10/2021 Adolescent Education Answer Date Record ed Getting School Help Needed Not on file 01/05 Sex and Gender Information Value Date Recorded Sex Assigned at Male 02/04/2020 12:19 PM CDT Gender Identity Female 02/04/2020 12:19 PM CDT Sexual Orientation Lesbian 10/12/2020 12 :02 PM CDT Last Filed Vital Signs Vital Sign Reading Time Taken Comments Blood Pressure 125/85 04/24/2022 2:47 PM PORCELAIN TECHNICIAN Pulse 101 04/24/2022 2:47 PM PORCELAIN TECHNICIAN Temperature 36.7 ??C (98.1 ??F) 04/24/2022 2:47 PM CS T Respiratory Rate 16 09/27/2021 6:07 AM CDT Oxygen Saturation 98% 04/24/2022 2:47 PM PORCELAIN TECHNICIAN Inhaled Oxygen Concentration - - Weight 50.8 kg (111 lb 14.4 oz) 01/23/2022 3:50 PM CDT Height 172.7 cm (5' 8) 01/23/2022 3:50 PM CDT Body Mass Index 17.01 01/23/2022 3:50 PM CDT Plan of Treatment Upcoming Encounters Date Type Department Care Team (Late st Contact Info) Description 10/29/2023 2:40 PM CDT Office Visit [facility] Clinic [address] [address] Jagdish Sibley MD [address] [place] [id number] 11/20/2023 3:45 PM CDT Office Visit [facility] Plastic and Reconstructive Surgery [address] [address] [place] [address] [employer] [place], [place] [address] Medical Devices Implanted Type Area Mushroom Laborer Device Identifier Shelf Expiration Date Model / Serial / Lot Vaginal Stent [id number] Implanted:Qty : 1 on 09/21/2021 by Jagdish Sibley MD at [facility] N/A: Vagina [id number] 06/15/2025 [id number] / / [id number] Advance Directives For more information, please contact: [phone] * Full Code (Latest Code Status on File) Date Activated Date Inactivated Comments 09/21/2021 6:28 PM 09/27/2021 7:47 PM All basic and advanced life-sustaining interventions are performed as appropriate Question Answer Comments Code status determined by: Discussion with ary nt/ legal decision maker Care Teams Ldr Rn Relationship Specialty Start Date End Date Sandra Baird APRN CLINICAL DATA MANAGEMENT MANAGER [address] [place] [address] PCP - General Family Medicine 06/10/20 Rusty Chilel Specialty Pallet Stone Inserter Plastic Surgery 02/04/20 Brendan Larkin MD [address] [place] [address] Plastic Surgery 05/09/20 Cynthia Smiley MD [address] [facility] [address] [place], [place] [id number] Plastic Surgery 07/26/20 Jagdish Sibley MD [address] [place], [place] [id number] Assigned Surgical Provider 01/08/21 Sandra Baird APRN CLINICAL DATA MANAGEMENT MANAGER [address] [place] [address] Assigned PCP 03/23/23 Chaya Mora Specialty Pallet Stone Inserter 06/24/23 Ariel Mae LGSW Automotive Upholsterer 06/24/23 Tu Briscoe MD [address] [place] [address] [place] [address] Surgery 06/24/23
--- OUTSIDE RECORDS SUMMARY | 2023-08-01 08:03 | XMS_ITS | Clinical Summary ---
Author Name Unknown Organization [facility] Address [place], [place] [address] Care Team Providers Care Maintenance And Operations Supervisor Name Role Phone Ruchi Lee MD Primary Care Provider [phone] Shira Babb RN Unavailable Unavailable Allergies No known active allergies Medications Medication Sig Dispensed Refills Start Date End Date Status ondansetron (ZOFRAN ODT) 4 mg disintegrating tabletIndications:Na usea and vomiting, unspecified vomiting type DISSOLVE 1 TABLET ON THE TONGUE EVERY 6 HOURS 20 Tablet 06/14/2023 Active ondansetron (ZOFRAN) 4 mg tabletIndications:Na usea and vomiting, unspecified vomiting type Take 1 Tablet (4 mg) by mouth every 8 hours if needed for Nausea/Vomitin g. 30 Tablet 06/18/2023 Active estradioL (ESTRACE) 2 mg tabletIndications:Ge nder dysphoria Take 3 Tablets (6 mg) by mouth once daily. 270 Tablet 07/10/2023 Active risperiDONE (RisperDAL) 1 mg tabletIndications:Bi polar I disorder, single manic episode, severe, with psychosis (HC) Take 1 Tablet (1 mg) by mouth two times daily. 60 Tablet 07/30/2023 Active estradioL (ESTRACE) 2 mg tabletIndications:Ge nder dysphoria Take 3 Tablets (6 mg) by mouth once daily. 270 Tablet 1 11/27/2022 4 Discontinue d(Reorder (E-cancel not sent)) risperiDONE (RisperDAL) 1 mg tabletIndications:Bi polar I disorder, single manic episode, severe, with psychosis (HC) Take 1 Tablet (1 mg) by mouth two times daily. 60 Tablet 06/25/2023 4 Discontinue d(Reorder (E-cancel not sent)) Active Problems Problem Noted Date Diagnosed Date Gender dysphoria 06/18/2023 Calculus of gallbladder with biliary obstruction but without cholecystitis 06/18/2023 Bipolar I disorder, single m anic episode, severe, with psychosis 04/30/2023 Encounters Date Type Department Care Team Description 08/01/2023 7:45 AM CDT Telemedicine [address] [address] Alyse Schneider NP Telehealth; Medication Management (No suicidal thoughts today or yesterday) 07/30/2023 7:45 AM CDT Office Visit [address] [address] Alyse Schneider NP Telehealth; Medication Management 07/30/[address] [address] Alyse Schneider NP Follow Up 07/30/[address] [address] Ruchi Lee MD Appointment 07/30/2023 Travel 07/09/[address] [address] Ruchi Lee MD Refill Request (estradioL (ESTRACE) 2 mg tablet) 07/02/2023 1:15 PM CDT Office Visit [address] [address] Alyse Schneider NP Medication Management (Things are fantasma rough, went through a break up recently) 07/02/2023 Travel 06/25/2023 11:15 AM CDT Office Visit [address] [address] Alyse Schneider NP Medication Management (Follow up) 06/25/2023 Travel 06/18/2023 3:15 PM LOAN INSPECTOR Office Visit [address] [address] Alyse Schneider NP Medication Management (Follow up stopped seroquel and started abilify, has been very restless since, sleeping better) 06/18/2023 1:10 PM LOAN INSPECTOR Office Visit [facility] [address] [place] [address] Ruchi Lee MD Medication Management 06/17/2023 8:47 AM LOAN INSPECTOR - 06/17/2023 11:59 PM LOAN INSPECTOR Hospital Encounter [facility] [address] [place] [address] Ruchi Lee MD Calculus of gallbladder with biliary obstruction but without cholecystitis; Nausea and vomiting, unspecified vomiting type 06/17/2023 Travel 06/14/2023 Refill [facility] [address] [place] [address] Ruchi Lee MD Refill Request (Ondansetron) 06/13/2023 3:30 PM LOAN INSPECTOR Orders Only [facility] [address] [place] [address] Lab, [facility] 06/13/2023 Refill [facility] [address] [place] [address] Ruchi Lee MD Error-please disregard 06/13/2023 Telephone [facility] [address] [place] [address] Ruchi Lee MD Error-please disregard 06/13/2023 Travel 06/11/2023 12:45 PM LOAN INSPECTOR Office Visit [facility] [address] [place] [address] Ruchi Lee MD ER Follow up ([facility] 06/08/23, feeling better) 06/11/2023 Travel 06/08/2023 Orders Only [facility] Scanner 1 scan: (1-Ord) [place] [facility], 06/08/2023 06/08/2023 Orders Only [facility] Scanner 1 scan: (1-Ord) [place] MULTIPLE RESULTS, 06/08/2023 06/08/2023 Orders Only [facility] Scanner 1 scan: (1-Ord) [facility], CT ABDOMEN/PELVIS, 06/08/2023 06/08/2023 Nurse Triage [facility] [address] [place] [address] Ruchi Lee MD Abdominal Pain 06/06/2023 1:45 PM LOAN INSPECTOR Telemedicine [facility] [address] [place] [address] Alyse Schneider NP Telehealth; Medication Management (Things are going okay. Pretty tired from the medication) 05/16/2023 1:15 PM LOAN INSPECTOR Telemedicine [facility] [address] [place] [address] Alyse Schneider, ANABELLE Telehealth; Medication Management (Things are going okay) 05/08/2023 1:15 PM LOAN INSPECTOR Telemedicine [facility] [address] [place] [address] Alyse Schneider NP Telehealth; Medication Management (No problems or concerns Is sick right now) 05/08/2023 Travel 05/02/2023 Telephone [facility] [address] [place] [address] Ruchi Lee MD Results from Last 3 Months Immunizations Name Administration Dates Next Due COVID-19 vaccine ([employer] NTAgentPair 30mcg/0.3mL) 12YO+ BIVALENT PF, MDV 03/01/2022 Dtap-5 Pertussis Antigens 2005 HPV 9 (Gardasil 9) 11/27/2022,12/17/2018 Hepatitis B (Peds) 12/17/2018 Inactivated Polio Vaccine 09/29/2010,04/13/2010 Influenza A (H1N1), Inactivated 01/15/2022 Influenza, IIV4 01/08/2023 MMR 05/26/2010 MMRV 12/03/2018 TD, UNSPECIFIED 09/29/2010 Tdap 05/31/2021,05/30/2021,12/03/2018 Family History Relation Name Status Comments Brother 1 Alive Brother 2 Alive Father Alive Social History Tobacco Use Types Packs/Day Years Used Date Smoking Tobacco: Never Smokeless Tobacco: Never Tobacco Cessation:Counseling Given: Yes Alcohol Use Standard Drinks/Week Comments Not Currently 0 (1 standard drink = 0.6 oz pur e alcohol) rare PHQ-2 Answer Date Recorded PHQ-2 TOTAL SCORE 2 08/01/2023 Social Connections Answer Date Recorded Frequency of Communication with Friends and Fami ly 0 03/09/2023 Financial Resource Strain Answer Date R ecorded Difficulty of Paying Living Expenses 3 03/09/2023 Difficulty of Paying Living Expenses Not on file 03/09/2023 Food Insecurity Answer Date Recorded Worried About Running Out of Food in the Last Ye ar 1 03/09/2023 Transportation Needs Answer Date Record ed Lack of Transportation (Medical) 1 03/09/2023 Housing Stability Answer Date Recorded Unable to Pay for Housing in the Last Year 1 03/09/2023 Sex and Gender Information Value Date Recorded Sex Assigned at Not on file Gender Identity Not on file Sexual Orientation Not on file Obstetrics History Last Filed Vital Signs Vital Sign Reading Time Taken Comments Blood Pressure 121/87 07/02/2023 1:29 PM CDT Pulse 83 07/02/2023 1:29 PM CDT Temperature 36.8 ??C (98.2 ??F) 03/09/2023 7:41 PM CS T Respiratory Rate 14 03/09/2023 7:41 PM LOAN INSPECTOR Oxygen Saturation 100% 06/18/2023 1:14 PM LOAN INSPECTOR Inhaled Oxygen Concentration - - Weight 50.7 kg (111 lb 12.8 oz) 07/02/2023 1:29 PM CDT Height 172.7 cm (5' 8) 04/30/2023 3:58 PM LOAN INSPECTOR Body Mass Index - - Plan of Treatment Upcoming Encounters Date Type Department Care Team (Late st Contact Info) Description 08/01/2023 2:50 PM CDT Office Visit [facility] [address] [place] [address] Ruchi Lee MD [address] [place] [address] 08/09/2023 12:45 PM CDT Telemedicine [facility] [address] [place] [id number] Alyse Schneider NP [address] [place] [address] 09/17/2023 1:10 PM CDT Office Visit [facility] [address] [place] [address] Ruchi Lee MD [address] [place] [address] Health Maintenance Due Date Last Done Comments Well Child Check for age 3-20 08/01/2005 COVID-19 vaccine series (2022- season) 2022 03/01/2022, 04/20/2021, 09/03/2020 BMI (ht and wt on same day) for age 18+ 01/25/2023 01/25/2022 HPV series for age 9-26 (3 - 3-dose series) 02/19/2023 11/27/2022, 12/17/2018 Influenza for age 9-49 12/15/2023 01/08/2023, 2021 Chlamydia for age 16-24 04/30/2024 04/30/2023, 01/08 Depression screening for age 12+ 07/31/2024 08/01/2023, 07/02/2023, 06/25/2023, Additional history exists Tetanus booster 05/31/2031 05/31/2021, 05/16, 12/03/2018, Additional history exists Tdap Completed 05/31/2021, 05/16, 12/03/2018 HIV for age 15-65 Completed 04/30/2023, , 03/15/2022 Hepatitis C screening for age 18-79 Completed 04/30/2023, 03/15/2022 Meningococcal series for age 11-21 Aged Out No longer eligible based on patient's age to complete this topic Pneumococcal series for age 6-64 Aged Out No longer eligible based on patient's age to complete this topic Procedures Procedure Name Priority Date/Time Associated Diagnosis Comments US ABDOMEN LIMITED GALLBLADDER Routine 06/17/2023 9:03 AM LOAN INSPECTOR Calculus of gallbladder with biliary obstruction but without cholecystitis Nausea and vomiting, unspecified vomiting type CBC WITH AUTO DIFFERENTIAL Routine 06/13/2023 3:43 PM LOAN INSPECTOR Calculus of gallbladder with biliary obstruction but without cholecystitis CBC WITH AUTO DIFFERENTIAL Routine 06/13/2023 3:43 PM LOAN INSPECTOR Calculus of gallbladder with biliary obstruction but without cholecystitis HEPATIC FUNCTION PANEL Routine 4 3:43 PM LOAN INSPECTOR Calculus of gallbladder with biliary obstruction but without cholecystitis SCAN-LABORATORY REPORT 4 12:00 AM LOAN INSPECTOR SCAN-LABORATORY REPORT 4 12:00 AM LOAN INSPECTOR SCAN-CT INTERPRETATION 4 12:00 AM LOAN INSPECTOR ANTI HIV 1/2 Routine 04/30/2023 4:47 PM LOAN INSPECTOR Screening examination for STD (sexually transmitted disease) ANTI HCV Routine 04/30/2023 4:47 PM LOAN INSPECTOR Screening examination for STD (sexually transmitted disease) GC CHLAMYDIA TRACH PROBE Routine 04/30/2023 3:55 PM LOAN INSPECTOR Screening examination for STD (sexually transmitted disease) from Last 3 Months or Most Recently Relevant to Health Maintenance Results * US ABDOMEN LIMITED GALLBLADDER (06/17/2023 9:03 AM LOAN INSPECTOR) Anatomical Region Laterality Modality Abdomen Ultrasound Narrative 06/17/2023 1:40 PM LOAN INSPECTOR Indication: Calculus of gallbladder with biliary obstruction without cholecystitis. ?? Nausea and vomiting. Findings: Gallbladder ultrasound was performed. ??There are multiple gallstones. ?? There is no gallbladder wall thickening or pericholecystic fluid. ??The common bile duct is not dilated measuring 0.1 cm in diameter. Impression: Cholelithiasis. ??No evidence of cholecystitis. Ruchi Lee MD US * CBC WITH AUTO DIFFERENTIAL (06/13/2023 3:43 PM LOAN INSPECTOR) [facility] WHITE BLOOD COUNT 9.1 4.5 - 11.0 thou/cu mm 06/13/2023 3:54 PM [facility] RED BLOOD COUNT 4.74 4.00 - 5.20 mil/cu mm 06/13/2023 3:54 PM [facility] HEMOGLOBIN 14.2 12.0 - 16.0 g/dL 06/13/2023 3:54 PM [facility] HEMATOCRIT 40.2 33.0 - 51.0 % 06/13/2023 3:54 PM [facility] MCV 85 80 - 100 fL 06/13/2023 3:54 PM [facility] MCH 30.0 26.0 - 34.0 pg 06/13/2023 3:54 PM [facility] MCHC 35.3 32.0 - 36.0 g/dL 06/13/2023 3:54 PM [facility] RDW 13.0 11.5 - 15.5 % 06/13/2023 3:54 PM [facility] PLATELET COUNT 232 140 - 440 thou/cu mm 06/13/2023 3:54 PM [facility] MPV 10.0 6.5 - 11.0 fL 06/13/2023 3:54 PM [facility] % NEUT 67.5 % 06/13/2023 3:54 PM [facility] % LYMPH 24.4 % 06/13/2023 3:54 PM [facility] % MONO 7.0 % 06/13/2023 3:54 PM LOAN INSPECTOR [facility] % EOS 0.9 % 06/13/2023 3:54 PM [facility] % BASO 0.2 % 06/13/2023 3:54 PM [facility] ABSOLUTE NEUTROPHILS 6.1 1.7 - 7.0 thou/cu mm 06/13/2023 3:54 PM [facility] ABSOLUTE LYMPHOCYTES 2.2 0.9 - 2.9 thou/cu mm 06/13/2023 3:54 PM LOAN INSPECTOR [facility] ABSOLUTE MONOCYTES 0.6 <0.9 thou/cu mm 06/13/2023 3:54 PM LOAN INSPECTOR [facility] ABSOLUTE EOSINOPHILS 0.1 <0.5 thou/cu mm 06/13/2023 3:54 PM LOAN INSPECTOR [facility] ABSOLUTE BASOPHILS 0.0 <0.3 thou/cu mm 06/13/2023 3:54 PM LOAN INSPECTOR [facility] Blood BLOOD SPECIMEN / Unknown Venipuncture / Unknown 06/13/2023 3:43 PM LOAN INSPECTOR 06/13/2023 3:43 PM LOAN INSPECTOR Ruchi Lee MD HEMATOLOGY [facility] [address] [place] [address], [place] [phone] * LIVER PANEL (HEPATIC FUNCTION PANEL) (06/13/2023 3:43 PM LOAN INSPECTOR) ALBUMIN 4.9 4.0 - 4.9 g/dL 06/14/2023 3:00 PM [facility] PROTEIN,TOTAL 7.6 6.0 - 8.0 g/dL 06/14/2023 3:00 PM [facility] BILIRUBIN,TOTAL 0.3 0.0 - 1.2 mg/dL 06/14/2023 3:00 PM [facility] BILIRUBIN,DIRECT <0.2 0.0 - 0.3 mg/dL 06/14/2023 3:00 PM [facility] BILIRUBIN,INDIRE CT 06/14/2023 3:00 PM [facility] Comment:Unable to calculate, Direct Bili <0.2 ALK PHOSPHATASE 55 35 - 104 IU/L 06/14/2023 3:00 PM [facility] ALT (SGPT) 10 10 - 35 IU/L 06/14/2023 3:00 PM [facility] AST (SGOT) 21 10 - 35 IU/L 06/14/2023 3:00 PM [facility] Blood BLOOD SPECIMEN / Unknown Venipuncture / Unknown 06/13/2023 3:43 PM LOAN INSPECTOR 06/13/2023 3:43 PM LOAN INSPECTOR Ruchi Lee MD CHEMISTRY Performing Organization Address [facility] Co de Phone Number [facility] [address] [place] [address], * SCAN-LABORATORY REPORT (06/08/2023 12:00 AM LOAN INSPECTOR) Only the most recent of2 resultswithin the time period is included. Scanner OTHER * SCAN-CT INTERPRETATION (06/08/2023 12:00 AM LOAN INSPECTOR) Anatomical Region Laterality Modality Other Scanner OTHER * ANTI HCV (04/30/2023 4:47 PM LOAN INSPECTOR) HEPATITIS C ANTIBODY Non-Reacti ve Non-React ministerio 05/01/2023 3:41 PM LOAN INSPECTOR [facility] Comment:Please note, per www .CDC.gov: If a patient is known to be at high risk of HCV infection, or is symptomatic, and the physician's suspicion of HCV infection is high, HCV RNA testing is often employed and is of diagnostic value, even after an initial negative anti-HCV test result. Blood BLOOD SPECIMEN / Unknown Butterfly / Unknown 04/30/2023 4:47 PM LOAN INSPECTOR 04/30/2023 4:50 PM LOAN INSPECTOR Ruchi Lee MD SEND OUTS Performing Organization Address [facility]/ZIP Co de Phone Number [facility] [address] [place] [address], * ANTI HIV 1/2 (04/30/2023 4:47 PM LOAN INSPECTOR) HIV-1/HIV-2 SCREEN Non-Reacti ve Non-Reacti ve 05/01/2023 3:36 PM LOAN INSPECTOR [facility] Comment:HIV-1 p24 and HIV-1/ HIV-2 Ab Not Detected. Blood BLOOD SPECIMEN / Unknown Butterfly / Unknown 04/30/2023 4:47 PM LOAN INSPECTOR 04/30/2023 4:50 PM LOAN INSPECTOR Ruchi Lee MD SEND OUTS [facility] [address] [place] [address], [place] * GC & CHLAMYDIA DNA PCR [[id number]] (04/30/2023 3:55 PM LOAN INSPECTOR) CHLAMYDIA PROBE Negative 7:26 PM LOAN INSPECTOR [facility] TRAL LABORATORY N GONORRHOEAE PROBE Negative 05/01/2023 7:26 PM LOAN INSPECTOR [facility] Other ORAL / Unknown Non-Blood / Unknown 04/30/2023 3:55 PM LOAN INSPECTOR 04/30/2023 5:08 PM LOAN INSPECTOR Ruchi Lee MD MICROBIOLOGY Performing Organization Address City/[facility]/ZIP Co de Phone Number [facility] [address], [place] [address], [place] from Last 3 Months or Most Recently Relevant to Health Maintenance Care Teams Maintenance And Operations Supervisor Relationship Specialty Start Date End Date Ruchi Lee MD [address] [place] [address] PCP - General Family Practice 01/25/22 Shira Babb, RN Registered Nurse 01/11/22
--- OUTSIDE RECORDS SUMMARY | 2023-08-01 08:03 | XMS_ITS | Clinical Summary ---
Author Name Unknown Organization [facility] Address [address] [place] [address] Care Team Providers Care Payment Manager Name Role Phone Rusty Chilel Unavailable Brednan Larkin MD Unavailable Sandra Baird APRN SENIOR FRONT END DEVELOPER Primary Care Prov ider Cynthia Smiley MD Unavailable [phone] Jagdish Sibley MD Unavailable [phone] Sandra Baird APRN SENIOR FRONT END DEVELOPER Unavailable + Chaya Mora Unavailable Unavailable Ariel Mae [facility] Unavailable Unavailable Tu Briscoe MD Unavailable [phone] Allergies No known active allergies Medications Medication [...] Overview: Added automatically from request for surgery [id number] Gender dysphoria 09/21/2021 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 and adult 021 Depression, unspecified depression type 06/14/19 21 Encounters Date Type Department Care Team Description 06/24/[address] [facility] [address] [address] Chaya Mora Care Team 06/12/[address] [facility] [address] [address] Chaya Mora 06/11/[address] [facility] [address], [address] [place] [address] Freddie Santos MD Appointment (Gender Care); Care Team from Last 3 Months Immunizations Name Administration Dates Next Due COVID-19 MONOVALENT 12+ (Pfizer) 04/20/2021 TDAP Vaccine (Boostrix) 05/30/2021 Family History Medical History Relation Comments Lung Cancer Maternal Grandfather Personality Disorder Mother Colon Cancer Other Relation Status Comments Brother 1 Alive Brother 2 Alive Father Alive Maternal Grandfather Mother Alive Other Social History Tobacco Use Types Packs/Day Years [...] place to sleep or slept in a halfway (including now)? No 07/10/2021 Adolescent Education Answer [...] Comments Blood Pressure 125/85 04/24/2022 2:47 PM ELECTRONIC TRANSACTION IMPLEMENTER Pulse 101 04/24/2022 2:47 PM ELECTRONIC TRANSACTION IMPLEMENTER Temperature 36.7 ??C (98.1 ??F) 04/24/2022 2:47 PM CS T Respiratory Rate 16 09/27/2021 6:07 AM CDT Oxygen Saturation 98% 04/24/2022 2:47 PM ELECTRONIC TRANSACTION IMPLEMENTER Inhaled Oxygen Concentration - - Weight 50.8 kg (111 lb 14.4 oz) 01/23/2022 3:50 PM CDT Height 172.7 cm (5' 8) 01/23/2022 3:50 PM CDT Body Mass Index 17.01 01/23/2022 3:50 PM CDT Plan of Treatment Upcoming Encounters Date Type Department Care Team (Late st Contact Info) Description 10/29/2023 2:40 PM CDT Office Visit [facility] [address] [address] Jagdish Sibley MD [address] [place] [phone] 11/20/2023 3:45 PM CDT Office Visit [facility]astic [facility] Reconstructive Surgery [address] [address] [place] [address] [facility] ORTHO [place], [place] [address] Health Maintenance Due Date Last Done Comments ANNUAL REVIEW OF HM ORDERS 2002 HIV SCREENING 2017 HEPATITIS C SCREENING 2020 DTAP/TDAP/TD IMMUNIZATION (2 - Td or Tdap) 06/27/2021 05/30/2021 HEPATITIS B IMMUNIZATION (1 of 3 - 19+ 3-dose series) 2021 PHQ-9 03/20/2022 09/18/2021, 02/17/2021, 04/11/2020 YEARLY PREVENTIVE VISIT 07/10/2022 07/11/19, 06/13/2020 COVID-19 Vaccine (4 - 2022-2 4 season) 2022 03/01/2022, 04/20/2021, 09/03/2020 HPV IMMUNIZATION (2 - 3-dose series) 12/25/2022 11/27/2022 ADVANCE CARE PLANNING 09/18/2042 Postpo mikel from 2002 (Patient Declined) INFLUENZA VACCINE Completed 01/08/2023, 01/15/2022 IPV IMMUNIZATION Aged Out No longer e ligible based on patient's age to complete this topic MENINGITIS IMMUNIZATION Aged Out No l onger eligible based on patient's age to complete this topic Pneumococcal Vaccine: Pediatrics (0 to 5 Years) and At-Risk Patients (6 to 64 Years) Aged Out No longer eligible b ased on patient's age to complete this topic RSV MONOCLONAL ANTIBODY Aged Out No l onger eligible based on patient's age to complete this topic Medical Devices Implanted Type Area Stoper Device Identifier Shelf Expiration Date Model / Serial / Lot Vaginal Stent [id number] Implanted:Qty : 1 on 09/21/2021 by Jagdish Sibley MD at [facility] N/A: Vagina [id number] 06/15/2025 [id number] / / [id number] Advance Directives For more information, please contact: [phone] * Full Code (Latest Code Status on File) Date Activated Date Inactivated Comments 09/21/2021 6:28 PM 09/27/2021 7:47 PM All basic and advanced life-sustaining interventions are performed as appropriate Question Answer Comments Code status determined by: Discussion with patie nt/ legal decision maker Care Teams Payment Manager Relationship Specialty Start Date End Date Sandra Baird APRN SENIOR FRONT END DEVELOPER [address] [place] [address] PCP - General Family Medicine 06/10/20 Rusty Chilel Specialty Project Mgr Plastic Surgery 02/04/20 Brendan Larkin MD [address] [place] [address] Plastic Surgery 05/09/20 Cynthia Smiley MD [address] [place] [address] Plastic Surgery 07/26/20 Jagdish Sibley MD [address] [place], [place] [address] Assigned Surgical Provider 01/08/21 Sandra Baird APRN SENIOR FRONT END DEVELOPER [address] [address] [address] Assigned PCP 03/23/23 Chaya Mora Specialty Project Mgr 06/24/23 Ariel Mae LGSW Law Firm Consultant 06/24/23 Tu Briscoe MD [address] [place] [address] [place] [address] Surgery 06/24/23
--- OUTSIDE RECORDS SUMMARY | 2023-08-01 08:04 | XMS_ITS | Encounter Summary ---
Author Name Unknown Organization [facility] Address [address] [place] [address] Care Team Providers Care Electronic Service Technician Name Role Phone Rusty Chilel Unavailable Brendan Larkin MD Unavailable Sandra Baird APRN STEREOTYPER APPRENTICE Primary Care Prov ider Sandra Baird APRN STEREOTYPER APPRENTICE Unavailable + Cynthia Smiley MD Unavailable [phone] Cynthia Smiley MD Unavailable [phone] Jagdish Sibley MD Unavailable [phone] Kevin Wells MD Unavailable Sandra Baird APRN STEREOTYPER APPRENTICE Unavailable + Chaya Mora Unavailable Unavailable Ariel Mae [facility] Unavailable Unavailable Tu Briscoe MD Unavailable [phone] Reason for Visit * Reason Onset Date Comments Refill Request 05/28/2021 Encounter Details Date Type Department Care Team (Late st Contact Info) Description 05/28/2021 Matthew [facility] [address] [place] [address] Sandra Baird APRN STEREOTYPER APPRENTICE [address] [place], [place] [id number] Refill Request Social History Tobacco Use Types Packs/Day Years Used Date Smoking Tobacco: Never Smokeless Tobacco: Never Alcohol Use Standard Drinks/Week Comments Never 0 (1 standard drink = 0.6 oz pur e alcohol) AUDIT-C Answer Date Recorded Q1: How often do you have a drink containing alc ohol? Never 02/04/2020 Average Number of Drinks Not on file 020 Frequency of Binge Drinking Not on file 01/14 PHQ-2 Answer Date Recorded PHQ-2 Score 2 02/17/2021 Sex and Gender Information Value Date Recorded Sex Assigned at Male 02/04/2020 12:19 PM CDT Gender Identity Female 02/04/2020 12:19 PM CDT Sexual Orientation Lesbian 10/12/2020 12 :02 PM CDT documented as of this encounter Miscellaneous Notes * Telephone Encounter - Ciarra Tejeda RN - 05/30/2021 11:21 AM CST Prescription approved per [facility] Refill Protocol. Ciarra Tejeda RN [facility] [employer] documented in this encounter Plan of Treatment Upcoming Encounters Date Type Department Care Team (Late st Contact Info) Description 10/29/2023 2:40 PM CDT Office Visit [facility] [address] [phone] Jagdish Sibley MD [address] [place] [address] 941195 11/20/2023 3:45 PM CDT Office Visit [facility] [address] [address] [place] [address] [place] [address] N [facility] OR[facility]O [place], [place] 483989 documented as of this encounter Visit Diagnoses Diagnosis 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 and adult documented in this encounter Additional Health Concerns Infection Onset Date Last Indicated Resolved Time Rule Out C-difficile 09/24/2021 09/24/2021 022 4:45 PM CDT Assessment Noted Time PHQ-9 Depression Total Score: 7 02/18/20 21 12:52 PM CDT documented as of this encounter Care Teams Electronic Service Technician Relationship Specialty Start Date End Date Sandra Baird APRN STEREOTYPER APPRENTICE [address] [place] [address] PCP - General Family Medicine 06/10/20 Rusty Chilel Specialty Yeast Culture Operator Plastic Surgery 02/04/20 Brendan Larkin MD [address] [place] [address] Plastic Surgery 05/09/20 Sandra Baird APRN STEREOTYPER APPRENTICE [address] [address] [place] [address] Assigned PCP 06/26/20 01/11/23 Cynthia Smiley MD [address] 895085 Plastic Surgery 07/26/20 Cynthia Smiley MD [address] [address] Assigned Pediatric Specialist Provider 07/31/20 01/26/22 Jagdish Sibley MD [address] [place], [place] 667485 Assigned Surgical Provider 01/08/21 [place] [address] [place] [address] Assigned PCP 01/12/23 03/22/23 Sandra Baird APRN STEREOTYPER APPRENTICE [address] [place] [address] Assigned PCP 03/23/23 Chaya Mora Specialty Yeast Culture Operator 06/24/23 Ariel Mae LGSW Research Tech 06/24/23 Tu Briscoe MD [address] [place] [address] DEPARTMENT OF SURGERY [place], [place] 3288[address] Surgery 06/24/23 documented as of this encounter
--- OUTSIDE RECORDS SUMMARY | 2023-08-01 08:04 | XMS_ITS | Encounter Summary ---
Author Name Unknown Organization [facility] Address [address] [place] [address] Care Team Providers Care Classroom Instructional Aide Name Role Phone Rusty Chilel Unavailable Brendan Larkin MD Unavailable MassSandra alvarado APRN INDUSTRIAL MAINTENANCE REPAIRER HELPER Primary Care Prov ider Sandra Baird APRN INDUSTRIAL MAINTENANCE REPAIRER HELPER Unavailable + Cynthia Smiley MD Unavailable [phone] Cynthia Smiley MD Unavailable [phone] Jagdish Sibley MD Unavailable [phone] Kevin Wells MD Unavailable [phone] Sandra Baird APRN INDUSTRIAL MAINTENANCE REPAIRER HELPER Unavailable + Chaya Mora Unavailable Unavailable Ariel Mae [facility] Unavailable Unavailable Tu Briscoe MD Unavailable [phone] Encounter Details Date Type Department Care Team (Late st Contact Info) Description 08/04/2021 MyC Medical Advice [address] [address] Claudia Rudd RN Social History Tobacco Use Types Packs/Day Years [...] Answer Date Recorded PHQ-2 Score 2 02/17/2021 Exercise Vital Sign Answer Date Recorde d [...] place to sleep or slept in a alf (including now)? No 07/10/2021 Sex and Gender Information Value Date Recorded Sex Assigned at Male 02/04/2020 12:19 PM CDT Gender Identity Female 02/04/2020 12:19 PM CDT Sexual Orientation Lesbian 10/12/2020 12 :02 PM CDT COVID-19 Exposure Response Date Recorded In the last month, have you been in contact with someone who was confirmed or suspected to have Coronavirus / COVID-19? No / Unsure 07/10/2021 9:55 AM CDT documented as of this encounter Miscellaneous Notes * Telephone Encounter - Porsha Garduno RN - 08/07/2021 11:15 AM CDT Routing to provider to review and advise. Please see [employer] message below. Porsha Garduno RN, BSN [facility] documented in this encounter Plan of Treatment Upcoming Encounters Date Type Department Care Team (Late st Contact Info) Description 10/29/2023 2:40 PM CDT Office Visit [facility] Plastic and Reconstructive Surgery [address] [phone] Jagdish Sibley MD [address] [place] [address] 11/20/2023 3:45 PM CDT Office Visit [facility] Plastic and Reconstructive Surgery [address] [phone] [place] [address] [place] [address] documented as of this encounter Visit Diagnoses Not on filedocumented in this encounter Additional Health Concerns Infection Onset Date Last Indicated Resolved Time Rule Out C-difficile 09/24/2021 09/24/2021 022 4:45 PM CDT Assessment Noted Time PHQ-9 Depression Total Score: 7 02/18/20 21 12:52 PM CDT documented as of this encounter Care Teams Classroom Instructional Aide Relationship Specialty Start Date End Date Sandra Baird APRN INDUSTRIAL MAINTENANCE REPAIRER HELPER [address] [place] [address] PCP - General Family Medicine 06/10/20 Rusty Chilel Specialty Foaming Machine Operator Plastic Surgery 02/04/20 Brendan Larkin MD [address] [place] [address] Plastic Surgery 05/09/20 Sandra Baird APRN INDUSTRIAL MAINTENANCE REPAIRER HELPER [address] [place] [address] Assigned PCP 06/26/20 01/11/23 Cynthia Smiley MD [address] [address] Plastic Surgery 07/26/20 Cynthia Smiley MD [address] [address] Assigned Pediatric Specialist Provider 07/31/20 01/26/22 Jagdish Sibley MD [address] [place] [address] Assigned Surgical Provider 01/08/21 [place] [address] [place] [address] Assigned PCP 01/12/23 03/22/23 Sandra Baird APRN INDUSTRIAL MAINTENANCE REPAIRER HELPER [address] [place] [address] Assigned PCP 03/23/23 Chaya Mora Specialty Foaming Machine Operator 06/24/23 Ariel Mae DIE TROUBLE SHOOTER Electrophysiology Technician 06/24/23 Tu Briscoe MD 420 [facility] DEPARTMENT OF SURGERY [place], [place] 6[address] Surgery 06/24/23 documented as of this encounter
--- OUTSIDE RECORDS SUMMARY | 2023-08-01 08:04 | XMS_ITS | Encounter Summary ---
Author Name Unknown Organization [facility] Address [address] [place] [address] Care Team Providers Care Computer Field Technician Name Role Phone Rusty Chilel Unavailable Brendan Larkin MD Unavailable Sandra Baird APRN GROUND WATER TECHNICIAN Primary Care Prov ider Cynthia Smiley MD Unavailable [phone] Jagdish Sibley MD Unavailable [phone] Sandra Baird APRN GROUND WATER TECHNICIAN Unavailable + Chaya Mora Unavailable Unavailable Ariel Mae HEARING IMPAIRED TEACHER Unavailable Unavailable Tu Briscoe MD Unavailable [phone] Reason for Visit * Reason Onset Date Comments Care Team 06/24/2023 Encounter Details Date Type Department Care Team (Late st Contact Info) Description 06/24/2023 Telephone [facility] [address] [place] [address] Chaya Mora Care Team Social History Tobacco Use Types Packs/Day Years Used Date Smoking Tobacco: Never Smokeless Tobacco: Never Alcohol Use Standard Drinks/Week Comments Not Currently [...] place to sleep or slept in a senior care (including now)? No 07/10/2021 Adolescent Education Answer Date Record ed Getting School Help Needed Not on file 01/05 Sex and Gender Information Value Date Recorded Sex Assigned at Male 02/04/2020 12:19 PM CDT Gender Identity Female 02/04/2020 12:19 PM CDT Sexual Orientation Lesbian 10/12/2020 12 :02 PM CDT documented as of this encounter Plan of Treatment Upcoming Encounters Date Type Department Care Team (Late st Contact Info) Description 10/29/2023 2:40 PM CDT Office Visit [facility] [address] [place] [address] Jagdish Sibley MD [address] [place] [address] 581505 11/20/2023 3:45 PM CDT Office Visit [facility] [place] [address] [facility] 4th [place] [phone] [place] [address] [place] [address] documented as of this encounter Visit Diagnoses Not on filedocumented in this encounter Additional Health Concerns Assessment Noted Time PHQ-9 Depression Total Score: 10 022 1:09 PM CDT documented as of this encounter Care Teams Computer Field Technician Relationship Specialty Start Date End Date Sandra Baird APRN GROUND WATER TECHNICIAN [address] [address] PCP - General Family Medicine 06/10/20 Rusty Chilel Specialty Beam Racker Plastic Surgery 02/04/20 Brendan Larkin MD [address] [place] [address] Plastic Surgery 05/09/20 Cynthia Smiley MD [address] [place] [address] 195 [place], [place] 347[address] Plastic Surgery 07/26/20 Jagdish Sibley MD [address] [place] [address] 907315 Assigned Surgical Provider 01/08/21 Sandra Baird APRN GROUND WATER TECHNICIAN [address] [address] Assigned PCP 03/23/23 Chaya Mora Specialty Beam Racker 06/24/23 Ariel Mae LGSW Assistant Athletic Trainer 06/24/23 Tu Briscoe MD [address] [place] [address] [place] [address] Surgery 06/24/23 documented as of this encounter
--- OUTSIDE RECORDS SUMMARY | 2023-08-01 08:04 | XMS_ITS | Encounter Summary ---
Author Name Unknown Organization [facility] Address [address] [place] [address] Care Team Providers Care Lot Attendant Name Role Phone Rusty Chilel Unavailable Brendan Larkin MD Unavailable MassSandra alvarado APRN SOLID GLASS ROD DOWEL MACHINE OPERATOR Primary Care Prov ider Sandra Baird APRN SOLID GLASS ROD DOWEL MACHINE OPERATOR Unavailable + Cynthia Smiley MD Unavailable [phone] Cynthia Smiley MD Unavailable [phone] Jagdish Sibley MD Unavailable [phone] Kevin Wells MD Unavailable Sandra Baird APRN SOLID GLASS ROD DOWEL MACHINE OPERATOR Unavailable + Chaya Mora Unavailable Unavailable Ariel Mae [facility] Unavailable Unavailable Tu Briscoe MD Unavailable [phone] Encounter Details Date Type Department Care Team (Late st Contact Info) Description 09/27/2021 [facility] [place] 9[address] [facility] [address]th [place] [address] Gaurav Angulo, [address] [address] Social History Tobacco Use Types Packs/Day Years [...] place to sleep or slept in a chcf (including now)? No 07/10/2021 Sex and Gender Information Value Date Recorded Sex Assigned at Male 02/04/2020 12:19 PM CDT Gender Identity Female 02/04/2020 12:19 PM CDT Sexual Orientation Lesbian 10/12/2020 12 :02 PM CDT COVID-19 Exposure Response Date Recorded In the last 10 days, have yo u been in contact with someone who was confirmed or suspected to have Coronavirus/COVID-19? No / Unsure 09/21/2021 5:37 AM CDT documented as of this encounter Plan of Treatment Upcoming Encounters Date Type Department Care Team (Late st Contact Info) Description 10/29/2023 2:40 PM CDT Office Visit [facility] Plastic and Reconstructive Surgery [address] [place] [phone] Jagdish Sibley MD [address] [place], [place] [address] 11/20/2023 3:45 PM CDT Office Visit [facility]astic and Reconstructive Surgery [address] [place] [phone] [place] [address] [facility] OR[facility]O [place], [place] [address] documented as of this encounter Visit Diagnoses Not on filedocumented in this encounter Additional Health Concerns Assessment Noted Time PHQ-9 Depression Total Score: 10 022 1:09 PM CDT documented as of this encounter Care Teams Lot Attendant Relationship Specialty Start Date End Date Sandra Baird APRN SOLID GLASS ROD DOWEL MACHINE OPERATOR [address] [place] [address] PCP - General Family Medicine 06/10/20 Rusty Chilel Specialty Statistical Financial Analyst Plastic Surgery 02/04/20 Brendan Larkin MD [address] [place] [address] Plastic Surgery 05/09/20 Sandra Baird APRN SOLID GLASS ROD DOWEL MACHINE OPERATOR [address] [place] [address] Assigned PCP 06/26/20 01/11/23 Cynthia Smiley MD [address] [place] [address] 195 [place] [address] Plastic Surgery 07/26/20 Cynthia Smiley MD 420 [facility] [address] [place] [address] Assigned Pediatric Specialist Provider 07/31/20 01/26/22 Jagdish Sibley MD 909 [place] [address] Assigned Surgical Provider 01/08/21 [place] [address] [place] [address] 425912 Assigned PCP 01/12/23 03/22/23 Sandra Baird APRN SOLID GLASS ROD DOWEL MACHINE OPERATOR [address] [place] [address] Assigned PCP 03/23/23 Chaya Mora Specialty Statistical Financial Analyst 06/24/23 Ariel Mae NETBACKUP ADMINISTRATOR Golf Cart Maker 06/24/23 Tu Briscoe MD 420 [facility] [place] [address] Surgery 06/24/23 documented as of this encounter
--- OUTSIDE RECORDS SUMMARY | 2023-08-01 08:04 | XMS_ITS | Encounter Summary ---
Author Name Unknown Organization [facility] Address [address] [place] [address] Care Team Providers Care Copper Miner Blasting Name Role Phone Rusty Chilel Unavailable Brendan Larkin MD Unavailable MassimSandra johnson APRN VERTICAL LATHE OPERATOR Primary Care Prov ider Sandra Baird APRN VERTICAL LATHE OPERATOR Unavailable + Cynthia Smiley MD Unavailable [phone] Cynthia Smiley MD Unavailable [phone] Jagdish Sibley MD Unavailable [phone] Kevin Wells MD Unavailable [phone] Sandra Baird APRN VERTICAL LATHE OPERATOR Unavailable + Chaya Mora Unavailable Unavailable Ariel Mae [facility] Unavailable Unavailable Tu Briscoe MD Unavailable [phone] Encounter Details Date Type Department Care Team (Late st Contact Info) Description 05/12/2021 [facility] [address] [place] [address] Jagdish Sibley MD [address] [place] [address] Social History Tobacco Use Types Packs/Day [...] [facility] [address] [phone] Jagdish Sibley MD [address] [place] [address] 155895 11/20/2023 3:45 PM CDT Office Visit [facility] and Reconstructive Surgery [address] [phone] [place] [address] [address] [place] [address] documented as of this encounter Visit Diagnoses Not on filedocumented in this encounter Additional Health Concerns Infection Onset Date Last Indicated Resolved Time Rule Out C-difficile 09/24/2021 09/24/2021 022 4:45 PM CDT Assessment Noted Time PHQ-9 Depression Total Score: 7 02/18/20 21 12:52 PM CDT documented as of this encounter Care Teams Copper Miner Blasting Relationship Specialty Start Date End Date Sandra Baird APRN VERTICAL LATHE OPERATOR [address] [place] [address] PCP - General Family Medicine 06/10/20 Rusty Chilel Specialty Clinical Investigator Plastic Surgery 02/04/20 Brendan Larkin MD [address] [place] [address] Plastic Surgery 05/09/20 Sandra Baird APRN VERTICAL LATHE OPERATOR [address] [place] [address] Assigned PCP 06/26/20 01/11/23 Cynthia Smiley MD [address] [place] [address] 639915 Plastic Surgery 07/26/20 Cynthia Smiley MD [address] [place] [address] [id number] Assigned Pediatric Specialist Provider 07/31/20 01/26/22 Jagdish Sibley MD 909 [place], [place] 2234[address] Assigned Surgical Provider 01/08/21 [place] [address] [place] [address] 904852 Assigned PCP 01/12/23 03/22/23 Sandra Baird APRN VERTICAL LATHE OPERATOR [address] [place] [address] Assigned PCP 03/23/23 Chaya Mora Specialty Clinical Investigator 06/24/23 Ariel Mae [facility] Distillery Worker General 06/24/23 Tu Briscoe MD 420 [facility] [place] [address] Surgery 06/24/23 documented as of this encounter
--- OUTSIDE RECORDS SUMMARY | 2023-08-01 08:04 | XMS_ITS | Encounter Summary ---
Author Name Unknown Organization [facility] Address [address] [place] [address]. [place] [address] Care Team Providers Care Carton Maker Name Role Phone Rusty Chilel Unavailable Brendan Larkin MD Unavailable Sandra Baird APRN NUCLEAR PLANT EQUIPMENT OPERATOR Primary Care Prov ider Sandra Baird APRN NUCLEAR PLANT EQUIPMENT OPERATOR Unavailable + Cynthia Smiley MD Unavailable [phone] Cynthia Smiley MD Unavailable [phone] Jagdish Sibley MD Unavailable [phone] Kevin Wells MD Unavailable Sandra Baird APRN NUCLEAR PLANT EQUIPMENT OPERATOR Unavailable + Chaya Mora Unavailable Unavailable Ariel Mae [facility] Unavailable Unavailable Tu Briscoe MD Unavailable [phone] Encounter Details Date Type Department Care Team (Late st Contact Info) Description 11/25/2021 MyC Medical Advice [facility] [address] [place] [address] Sandra Baird APRN NUCLEAR PLANT EQUIPMENT OPERATOR [address] [place] [address] Social History Tobacco Use Types Packs/Day Years [...] a senior care (including now)? No 07/10/2021 Sex and Gender Information Value Date Recorded Sex Assigned at Male 02/04/2020 12:19 PM CDT Gender Identity Female 02/04/2020 12:19 PM CDT Sexual Orientation Lesbian 10/12/2020 12 :02 PM CDT COVID-19 Exposure Response Date Recorded In the last 10 days, have yo u been in contact with someone who was confirmed or suspected to have Coronavirus/COVID-19? No / Unsure 11/21/2021 12:45 PM CDT documented as of this encounter Miscellaneous Notes * Telephone Encounter - Porsha Garduno RN - 11/27/2021 10:28 AM CDT Triaged patient's tooth pain which patient stated is causing her jaw to lock up. Porsha Garduno RN, BSN [facility] documented in this encounter Plan of Treatment Upcoming Encounters Date Type Department Care Team (Late st Contact Info) Description 10/29/2023 2:40 PM CDT Office Visit [facility] Plastic and Reconstructive Surgery [address] [phone] Jagdish Sibley MD [address] [place] [address] 11/20/2023 3:45 PM CDT Office Visit [facility] Plastic and Reconstructive Surgery [address] [phone] [place] [address] [facility] [place] [address] documented as of this encounter Visit Diagnoses Not on filedocumented in this encounter Additional Health Concerns Assessment Noted Time PHQ-9 Depression Total Score: 10 022 1:09 PM CDT documented as of this encounter Care Teams Carton Maker Relationship Specialty Start Date End Date Sandra Baird APRN NUCLEAR PLANT EQUIPMENT OPERATOR [address] [place] [address] PCP - General Family Medicine 06/10/20 Rusty Chilel Specialty Courtroom Deputy Or Calendar Clerk Plastic Surgery 02/04/20 Brendan Larkin MD [address] [place] [address] Plastic Surgery 05/09/20 Sandra Baird APRN NUCLEAR PLANT EQUIPMENT OPERATOR [address] [place] [address] Assigned PCP 06/26/20 01/11/23 Cynthia Smiley MD [address] 113[address] Plastic Surgery 07/26/20 Cynthia Smiley MD [address] 904205 Assigned Pediatric Specialist Provider 07/31/20 01/26/22 Jagdish Sibley MD 909 [place], [place] 563585 Assigned Surgical Provider 01/08/21 Kevin Wells MD 4151 [facility], [place] 719562 Assigned PCP 01/12/23 03/22/23 Sandra Baird APRN NUCLEAR PLANT EQUIPMENT OPERATOR [address] [place] [address] Assigned PCP 03/23/23 Chaya Mora Specialty Courtroom Deputy Or Calendar Clerk 06/24/23 Ariel Mae LGSW Clinical Appeals Specialist 06/24/23 Tu Briscoe MD 420 [facility] DEPARTMENT OF SURGERY [place], [place] [address] Surgery 06/24/23 documented as of this encounter
--- OUTSIDE RECORDS SUMMARY | 2023-08-01 08:04 | XMS_ITS | Encounter Summary ---
Author Name Unknown Organization [facility] Address [address] [place] [address] Care Team Providers Care Housing Coordinator Name Role Phone Rusty Chilel Unavailable Brendan Larkin MD Unavailable Sandra Baird APRN ROTARY DRIER Primary Care Prov ider Sandra Baird APRN ROTARY DRIER Unavailable + Cynthia Smiley MD Unavailable [phone] Cynthia Smiley MD Unavailable [phone] Jagdish Sibley MD Unavailable [phone] Kevin Wells MD Unavailable [phone] Sandra Baird APRN ROTARY DRIER Unavailable + Chaya Mora Unavailable Unavailable Ariel Mae [facility] Unavailable Unavailable Tu Briscoe MD Unavailable [phone] Reason for Visit * Reason Onset Date Comments Refill Request 06/24/2021 Encounter Details Date Type Department Care Team (Late st Contact Info) Description 06/24/2021 Matthew Gregory [facility] [address] [place] [address] Sanrda Baird APRN ROTARY DRIER [address] [place], [place] [phone] Refill Request Social History Tobacco Use Types [...] encounter Miscellaneous Notes * Telephone Encounter - Jennifer Dorman - 06/30/2021 11:47 AM CDT appt is scheduled * Telephone Encounter - Madina Leung RN - 06/26/2021 12:44 PM CDT Patient calling for medication refill. Per chart review, patient is due for a visit. Assisted with scheduling. Cristina Adame RN * Telephone Encounter - Sandra Baird APRN CNP - 06/26/2021 12:33 PM CDT Patient needs visit for med check prior to any further refills. Please call and assist in scheduling. Rx sent for #30 day supply. Thanks SAMSON Galaviz * Telephone Encounter - Porsha Garduno RN - 06/26/2021 12:01 PM CDT Requested Prescriptions Pending Prescriptions Disp Refills sertraline (ZOLOFT) 50 MG tablet 30 tablet 0 Sig: Take 1 tablet (50 mg) by mouth daily SSRIs Protocol Failed - 06/24/2021 4:20 PM Failed - PHQ-9 score less than 5 in past 6 months Please review last PHQ-9 score. Failed - Recent (6 mo) or future (30 days) visit within the authorizing provider's specialty Patient had office visit in the last 6 months or has a visit in the next 30 days with authorizing provider or within the authorizing provider's specialty. See Patient Info tab in inbasket, or Choose Columns in Meds & Orders section of the refill encounter. Passed - Medication is active on med list Passed - Patient is age 18 or older Passed - No active on record Passed - No positive test in last 12 months Refused Prescriptions Disp Refills estradiol (ESTRACE) 2 MG tablet 270 tablet 0 Sig: Take 3 tablets (6 mg) by mouth daily 6mg per day Hormone Replacement Therapy Passed - 06/24/2021 4:20 PM Passed - Blood pressure under 140/90 in past 12 months BP Readings from Last 3 Encounters: 01/03/21 125/88 07/22/20 128/86 (95 %, Z = 1.64 / 99 %, Z = 2.33)* 06/13/20 110/67 (45 %, Z = -0.13 / 55 %, Z = 0.13)* *BP percentiles are based on the 2017 AAP Clinical Practice Guideline for girls Passed - Recent (12 mo) or future (30 days) visit within the authorizing provider's specialty Patient has had an office visit with the authorizing provider or a provider within the authorizing providers department within the previous 12 mos or has a future within next 30 days. See Patient Info tab in inbasket, or Choose Columns in Meds & Orders section of the refill encounter. Passed - Medication is active on med list Passed - Patient is 18 years of age or older Passed - No active on record Passed - No positive test on record in past 12 months documented in this encounter Plan of Treatment Upcoming Encounters Date Type Department Care Team (Late st Contact Info) Description 10/29/2023 2:40 PM CDT Office Visit [facility] [address] [phone] Jagdish Sibley MD [address] [place] [address] 11/20/2023 3:45 PM CDT Office Visit [facility] [place] [address] [facility] [address] 4th [place] [phone] [place] [address] [place] [address] documented as of this encounter Visit Diagnoses Diagnosis 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 and adult Depression, unspecified depression type documented in this encounter Additional Health Concerns Infection Onset Date Last Indicated Resolved Time Rule Out C-difficile 09/24/2021 09/24/2021 022 4:45 PM CDT Assessment Noted Time PHQ-9 Depression Total Score: 7 02/18/20 21 12:52 PM CDT documented as of this encounter Care Teams Housing Coordinator Relationship Specialty Start Date End Date Sandra Baird APRN ROTARY DRIER [address] [place] [address] PCP - General Family Medicine 06/10/20 Rusty Chilel Specialty Checkout Operator Plastic Surgery 02/04/20 Brendan Larkin MD [address] [place] [address] Plastic Surgery 05/09/20 Sandra Baird APRN ROTARY DRIER [address] [place] [address] Assigned PCP 06/26/20 01/11/23 Cynthia Smiley MD [address] [place] [address] 195 [place] [address] Plastic Surgery 07/26/20 Cynthia Smiley MD 420 [facility] 195 [place] [address] Assigned Pediatric Specialist Provider 07/31/20 01/26/22 Jagdish Sibley MD [address] [place] [address] Assigned Surgical Provider 01/08/21 [place] [address] [place] [address] 335012 Assigned PCP 01/12/23 03/22/23 Sandra Baird APRN ROTARY DRIER [address] [place] [address] Assigned PCP 03/23/23 Chaya Mora Specialty Checkout Operator 06/24/23 Ariel Mae FEDERAL AID COORDINATOR Concrete Block Maker 06/24/23 Tu Briscoe MD 420 [facility] [place] [address] Surgery 06/24/23 documented as of this encounter
--- OUTSIDE RECORDS SUMMARY | 2023-08-01 08:04 | XMS_ITS | Encounter Summary ---
Author Name Unknown Organization [facility] Address [address] [place] [address] Care Team Providers Care Dining Room Attendant Name Role Phone Rusty Chilel Unavailable Brendan Larkin MD Unavailable MassSandra alvarado APRN CHROMIUM PLATER Primary Care Prov ider Sandra Biard APRN CHROMIUM PLATER Unavailable + Cynthia Smiley MD Unavailable [phone] Cynthia Smiley MD Unavailable [phone] Jagdish Sibley MD Unavailable [phone] Kevin Wells MD Unavailable [phone] Sandra Baird APRN CHROMIUM PLATER Unavailable + Chaya Mora Unavailable Unavailable Ariel Mae [facility] Unavailable Unavailable Tu Briscoe MD Unavailable [phone] Encounter Details Date Type Department Care Team (Late st Contact Info) Description 2021 Matthew [facility] Delores [facility] [place] Re[facility]ive Surgery Clinic [address] 4th [place] [address] Merritt Medina, RN Social History Tobacco Use Types Packs/Day [...] a long term (including now)? No 07/10/2021 Sex and Gender Information Value Date Recorded Sex Assigned at Male 02/04/2020 12:19 PM CDT Gender Identity Female 02/04/2020 12:19 PM CDT Sexual Orientation Lesbian 10/12/2020 12 :02 PM CDT COVID-19 Exposure Response Date Recorded In the last 10 days, have yo u been in contact with someone who was confirmed or suspected to have Coronavirus/COVID-19? No / Unsure 09/01/2021 4:07 PM CDT documented as of this encounter Plan of Treatment Upcoming Encounters Date Type Department Care Team (Late st Contact Info) Description 10/29/2023 2:40 PM CDT Office Visit [facility]astic [facility] Re[facility]ive Surgery Clinic [address] [place] [phone] Jagdish Sibley MD [address] [place], [place] [address] 11/20/2023 3:45 PM CDT Office Visit [facility] Surgery Clinic [address] [place] [phone] [place] [address] [place] [address] documented as of this encounter Visit Diagnoses Not on filedocumented in this encounter Additional Health Concerns Infection Onset Date Last Indicated Resolved Time Rule Out C-difficile 09/24/2021 09/24/2021 022 4:45 PM CDT Assessment Noted Time PHQ-9 Depression Total Score: 7 02/18/20 21 12:52 PM CDT documented as of this encounter Care Teams Dining Room Attendant Relationship Specialty Start Date End Date Sandra Baird APRN CHROMIUM PLATER [address] [place] [address] PCP - General Family Medicine 06/10/20 Rusty Chilel Specialty Livestock Farmworker Plastic Surgery 02/04/20 Brendan Larkin MD [address] [place] [address] Plastic Surgery 05/09/20 Sandra Baird APRN CHROMIUM PLATER [address] [place] [address] Assigned PCP 06/26/20 01/11/23 Cynthia Smiley MD [address] [place] [address] 195 [place], [place] [address]32[address] Plastic Surgery 07/26/20 Cynthia Smiley MD 420 [facility] 195 [place] [address] Assigned Pediatric Specialist Provider 07/31/20 01/26/22 Jagdish Sibley MD [address]09 [place] [address] Assigned Surgical Provider 01/08/21 [place] [address] [place] [address] 030312 Assigned PCP 01/12/23 03/22/23 Sandra Baird APRN CHROMIUM PLATER [address] [place] [address] Assigned PCP 03/23/23 Chaya Mora Specialty Livestock Farmworker 06/24/23 Ariel Mae LGSW Act English Tutor 06/24/23 Tu Briscoe MD 420 [facility] [place] [address] Surgery 06/24/23 documented as of this encounter
--- OUTSIDE RECORDS SUMMARY | 2023-08-01 08:04 | XMS_ITS | Encounter Summary ---
Author Name Unknown Organization [facility] Address [address] [place] [address] Care Team Providers Care Cap Parts Cutter Name Role Phone Rusty Chilel Unavailable Brendan Larkin MD Unavailable Sandra Baird APRN SEWING MACHINE OPERATOR ZIPPER Primary Care Prov ider Cynthia Smiley MD Unavailable [phone] Jagdish Sibley MD Unavailable [phone] Sandra Baird APRN SEWING MACHINE OPERATOR ZIPPER Unavailable + Chaya Mora Unavailable Unavailable Ariel Mae EYE PHYSICIAN Unavailable Unavailable Tu Briscoe MD Unavailable [phone] Encounter Details Date Type Department Care Team (Late st Contact Info) Description 06/12/2023 MyC Medical Advice [facility] Plastic and Reconstructive Surgery Clinic [address] 4th [place] [address] Chaya Mora Social History Tobacco Use Types Packs/Day Years [...] place to sleep or slept in a nursing home (including now)? No 07/10/2021 Adolescent Education Answer [...] Description 10/29/2023 2:40 PM CDT Office Visit [facility] Plastic and Reconstructive Surgery [address] [address] Jagdish Sibley MD [address] [place] [address] 11/20/2023 3:45 PM CDT Office Visit [facility] Plastic and Reconstructive Surgery [address] [address] [place] [address] [place] [address] documented as of this encounter Visit Diagnoses Not on filedocumented in this encounter Additional Health Concerns Assessment Noted Time PHQ-9 Depression Total Score: 10 022 1:09 PM CDT documented as of this encounter Care Teams Cap Parts Cutter Relationship Specialty Start Date End Date Sandra Baird APRN SEWING MACHINE OPERATOR ZIPPER [address] [place] [address] PCP - General Family Medicine 06/10/20 Rusty Chilel Specialty Supplies Packer Plastic Surgery 02/04/20 Brendan Larkin MD [address] [place] [address] Plastic Surgery 05/09/20 Cynthia Smiley MD 420 [facility] 195 [place], [place] [address] Plastic Surgery 07/26/20 Jagdish Sibley MD 909 [place] [address] Assigned Surgical Provider 01/08/21 Sandra Baird APRN SEWING MACHINE OPERATOR ZIPPER [address] [place] [address] Assigned PCP 03/23/23 Chaya Mora Specialty Supplies Packer 06/24/23 Ariel Mae EYE PHYSICIAN Cardiovascular Surgeon 06/24/23 Tu Briscoe MD 420 [facility] DEPARTMENT OF SURGERY [place], [place] [address] Surgery 06/24/23 documented as of this encounter
--- OUTSIDE RECORDS SUMMARY | 2023-08-01 08:04 | XMS_ITS | Encounter Summary ---
Author Name Unknown Organization [facility] Address [address] [place] [address] Care Team Providers Care Statistical Machine Servicer Name Role Phone Rusty Chilel Unavailable Brendan Larkin MD Unavailable MassimSandra johnson APRN ELECTRIC METER REPAIRER APPRENTICE Primary Care Prov ider Sandra Baird APRN ELECTRIC METER REPAIRER APPRENTICE Unavailable + Cynthia Smiley MD Unavailable [phone] Cynthia Smiley MD Unavailable [phone] Jagdish Sibley MD Unavailable [phone] Kevin Wells MD Unavailable Sandra Baird APRN ELECTRIC METER REPAIRER APPRENTICE Unavailable + Chaya Mora Unavailable Unavailable Ariel Mae [facility] Unavailable Unavailable Tu Briscoe MD Unavailable [phone] Encounter Details Date Type Department Care Team (Late st Contact Info) Description 09/28/2021 [facility] Medical Delores [facility] [address] [place] [address] Jagdish Sibley MD [address] [place] [address] Social History Tobacco Use Types Packs/Day [...] place to sleep or slept in a prison (including now)? No 07/10/2021 Sex and Gender [...] Description 10/29/2023 2:40 PM CDT Office Visit [facility] Plastic and Reconstructive Surgery [address] [place] [phone] Jagdish Sibley MD 909 [place] [address] 11/20/2023 3:45 PM CDT Office Visit [facility] Plastic and Reconstructive Surgery [address] [place] [phone] [place] [address] PLASTICS AND ORTHO [place], [place] [address] documented as of this encounter Visit Diagnoses Not on filedocumented in this encounter Additional Health Concerns Assessment Noted Time PHQ-9 Depression Total Score: 10 022 1:09 PM CDT documented as of this encounter Care Teams Statistical Machine Servicer Relationship Specialty Start Date End Date Sandra Baird APRN ELECTRIC METER REPAIRER APPRENTICE [address] [place] [address] PCP - General Family Medicine 06/10/20 Rusty Chilel Specialty Cable Installation Technician Plastic Surgery 02/04/20 Brendan Larkin MD [address] [place] [address] Plastic Surgery 05/09/20 Sandra Baird APRN ELECTRIC METER REPAIRER APPRENTICE [address] [place] [address] Assigned PCP 06/26/20 01/11/23 Cynthia Smiley MD [address] [place] [address] 195 [place] [address] Plastic Surgery 07/26/20 Cynthia Smiley MD 420 [facility] 195 [place] [address] Assigned Pediatric Specialist Provider 07/31/20 01/26/22 Jagdish Sibley MD 9[address] [place], [place] 2210[address] Assigned Surgical Provider 01/08/21 [place] [address] [place] [address] 811602 Assigned PCP 01/12/23 03/22/23 Sandra Baird APRN ELECTRIC METER REPAIRER APPRENTICE [address] [place] [address] Assigned PCP 03/23/23 Chaya Mora Specialty Cable Installation Technician 06/24/23 Ariel Mae LGSW Lard Renderer 06/24/23 Tu Briscoe MD 420 [facility] [place] [address] Surgery 06/24/23 documented as of this encounter
--- OUTSIDE RECORDS SUMMARY | 2023-08-01 08:04 | XMS_ITS | Encounter Summary ---
Author Name Unknown Organization [facility] Address [address] [place] [address] Care Team Providers Care Third Cook Name Role Phone Rusty Chilel Unavailable Brendan Larkin MD Unavailable MassSandra alvarado APRN FLITCH HANGER Primary Care Prov ider Sandra Baird APRN FLITCH HANGER Unavailable + Cynthia Smiley MD Unavailable [phone] Cynthia Smiley MD Unavailable [phone] Jagdish Sibley MD Unavailable [phone] Kevin Wells MD Unavailable Sandra Baird APRN FLITCH HANGER Unavailable + Chaya Mora Unavailable Unavailable Ariel Mae [facility] Unavailable Unavailable Tu Briscoe MD Unavailable [phone] Encounter Details Date Type Department Care Team (Late st Contact Info) Description 01/23/2022 Matthew Estrella [facility] Plastic and Reconstructive Surgery Clinic [place] 909 [facility] 4th [place] [address] Gaurav Angulo, [address] [address] Social History Tobacco Use Types [...] place to sleep or slept in a fci (including now)? No 07/10/2021 Sex and Gender Information Value Date Recorded Sex Assigned at Male 02/04/2020 12:19 PM CDT Gender Identity Female 02/04/2020 12:19 PM CDT Sexual Orientation Lesbian 10/12/2020 12 :02 PM CDT COVID-19 Exposure Response Date Recorded In the last 10 days, have yo u been in contact with someone who was confirmed or suspected to have Coronavirus/COVID-19? No / Unsure 01/23/2022 3:16 PM CDT documented as of this encounter Plan of Treatment Upcoming Encounters Date Type Department Care Team (Late st Contact Info) Description 10/29/2023 2:40 PM CDT Office Visit [facility] Plastic and Reconstructive Surgery [address] [place] [phone] Jagdish Sibley MD [address] [place], [place] [address] 11/20/2023 3:45 PM CDT Office Visit [facility] Plastic and Reconstructive Surgery [address] [place] [phone] [place] [address] PLASTICS AND ORTHO [place], [place] [address] documented as of this encounter Visit Diagnoses Not on filedocumented in this encounter Additional Health Concerns Assessment Noted Time PHQ-9 Depression Total Score: 10 022 1:09 PM CDT documented as of this encounter Care Teams Third Cook Relationship Specialty Start Date End Date Sandra Baird APRN FLITCH HANGER [address] [place] [address] PCP - General Family Medicine 06/10/20 Rusty Chilel Specialty Senior Financial Consultant Plastic Surgery 02/04/20 Brendan Larkin MD [address] [place] [address] Plastic Surgery 05/09/20 Sandra Baird APRN FLITCH HANGER [address] [place] [address] Assigned PCP 06/26/20 01/11/23 Cynthia Smiley MD [address] [place] [address] 195 [place] [address] Plastic Surgery 07/26/20 Cynthia Smiley MD 420 [facility] 195 [place] [address] Assigned Pediatric Specialist Provider 07/31/20 01/26/22 Jagdish Sibley MD [address] [place] [address] Assigned Surgical Provider 01/08/21 [place] [address] [place] [address]142 Assigned PCP 01/12/23 03/22/23 Sandra Baird APRN FLITCH HANGER [address] [place] [address] Assigned PCP 03/23/23 Chaya Mora Specialty Senior Financial Consultant 06/24/23 Ariel Mae CRITICAL CARE PHYSICIAN Telegraph Office Telephone Clerk 06/24/23 Tu Briscoe MD 420 [facility] [place] [address] Surgery 06/24/23 documented as of this encounter
--- OUTSIDE RECORDS SUMMARY | 2023-08-01 08:04 | XMS_ITS | Encounter Summary ---
Author Name Unknown Organization [facility] Address [address] [facility] [place] [address] Care Team Providers Care Outcomes Analyst Name Role Phone Rusty Chilel Unavailable Brendan Larkin MD Unavailable MassimSandra johnson APRN HOUSEHOLD APPLIANCE REPAIRER Primary Care Prov ider Sandra Baird APRN HOUSEHOLD APPLIANCE REPAIRER Unavailable + Cynthia Smiley MD Unavailable Cynthia Smiley MD Unavailable [phone] Jagdish Sibley MD Unavailable [phone] Kevin Wells MD Unavailable [phone] Sandra Baird APRN HOUSEHOLD APPLIANCE REPAIRER Unavailable + Chaya Mora Unavailable Unavailable Ariel Mae [facility] Unavailable Unavailable Tu Briscoe MD Unavailable [phone] Encounter Details Date Type Department Care Team (Late st Contact Info) Description 09/20/2021 MyC Medical Advice [facility] PREOP/PHASE II [address] [place] [address] Cici Goode RN Social History Tobacco Use Types Packs/Day [...] place to sleep or slept in a mcc (including now)? No 07/10/2021 Sex and Gender [...] Description 10/29/2023 2:40 PM CDT Office Visit [facility] Plastic and Reconstructive Surgery Clinic [address] [place] [phone] Jagdish Sibley MD [address] [place], [place] [address] 11/20/2023 3:45 PM CDT Office Visit [facility] Plastic and Reconstructive Surgery Clinic [address] 4th [place] [phone] [place] [address] [place] [address] documented as of this encounter Visit Diagnoses Not on filedocumented in this encounter Additional Health Concerns Infection Onset Date Last Indicated Resolved Time Rule Out C-difficile 09/24/2021 09/24/2021 022 4:45 PM CDT Assessment Noted Time PHQ-9 Depression Total Score: 10 022 1:09 PM CDT documented as of this encounter Care Teams Outcomes Analyst Relationship Specialty Start Date End Date Sandra Baird APRN HOUSEHOLD APPLIANCE REPAIRER [address] [place] [address] PCP - General Family Medicine 06/10/20 Rusty Chilel Specialty Industrial Garage Servicer Plastic Surgery 02/04/20 Brendan Larkin MD [address] [place] [address] Plastic Surgery 05/09/20 Sandra Baird APRN HOUSEHOLD APPLIANCE REPAIRER [address] [place] [address] Assigned PCP 06/26/20 01/11/23 Cynthia Smiley MD [address] [place] [address] 195 [place], [place] [address] Plastic Surgery 07/26/20 Cynthia Smiley MD 420 [facility] 195 [place] [address] Assigned Pediatric Specialist Provider 07/31/20 01/26/22 Jagdish Sibley MD [address] [place], [place] [address] Assigned Surgical Provider 01/08/21 [place] [address] [place] [address] 533542 Assigned PCP 01/12/23 03/22/23 Sandra Baird APRN HOUSEHOLD APPLIANCE REPAIRER [address] [place] [address] Assigned PCP 03/23/23 Chaya Mora Specialty Industrial Garage Servicer 06/24/23 Ariel Mae LGSW Escort Patients 06/24/23 Tu Briscoe MD 420 [facility] [place] [address] Surgery 06/24/23 documented as of this encounter
--- OUTSIDE RECORDS SUMMARY | 2023-08-01 08:04 | XMS_ITS | Encounter Summary ---
Author Name Unknown Organization [place] Address [address] [place] [address] Care Team Providers Care Asphalt Paving Superintendent Name Role Phone Rusty Chilel Unavailable Brendan Larkin MD Unavailable MassimSandra johnson APRN PATROL SERGEANT SHERIFF'S OFFICE Primary Care Prov ider Sandra Baird APRN PATROL SERGEANT SHERIFF'S OFFICE Unavailable + Cynthia Smiley MD Unavailable [phone] Jagdish Sibley MD Unavailable [phone] Kevin Wells MD Unavailable Sandra Baird APRN PATROL SERGEANT SHERIFF'S OFFICE Unavailable + Chaya Mora Unavailable Unavailable Ariel Mae BONDING MOLDER Unavailable Unavailable Tu Briscoe MD Unavailable [phone] Encounter Details Date Type Department Care Team (Late st Contact Info) Description 07/31/2022 [facility] Medical Advice [facility] [address] [place] [address] Jagdish Sibley MD [address] [place] [address] Social History Tobacco Use Types Packs/Day [...] place to sleep or slept in a skilled nursing (including now)? No 07/10/2021 Sex and Gender Information Value Date Recorded Sex Assigned at Male 02/04/2020 12:19 PM CDT Gender Identity Female 02/04/2020 12:19 PM CDT Sexual Orientation Lesbian 10/12/2020 12 :02 PM CDT documented as of this encounter Plan of Treatment Upcoming Encounters Date Type Department Care Team (Late st Contact Info) Description 10/29/2023 2:40 PM CDT Office Visit [facility] [address] [place] [address] Jagdish Sibley MD [address] [place] [address] 229535 11/20/2023 3:45 PM CDT Office Visit [facility] Re[facility] Surgery [facility] [place] [address] [facility] [address]th [place] [phone] [place] [address] [place] [address] documented as of this encounter Visit Diagnoses Not on filedocumented in this encounter Additional Health Concerns Assessment Noted Time PHQ-9 Depression Total Score: 10 022 1:09 PM CDT documented as of this encounter Care Teams Asphalt Paving Superintendent Relationship Specialty Start Date End Date Sandra Baird APRN PATROL SERGEANT [facility] [address] [place] [address] PCP - General Family Medicine 06/10/20 Rusty Chilel Specialty Youth Coordinator Plastic Surgery 02/04/20 Brendan Larkin MD [address] [place] [address] Plastic Surgery 05/09/20 Sandra Baird APRN PATROL SERGEANT [facility]ICE [address] [place] [address] Assigned PCP 06/26/20 01/11/23 Cynthia Smiley MD [address] [facility] 195 [place] [address] Plastic Surgery 07/26/20 [place] [address] [place] [address] Assigned Surgical Provider 01/08/21 [place] [address] [place] [address] Assigned PCP 01/12/23 03/22/23 Sandra Baird APRN PATROL SERGEANT [facility] [address] [place] [address] Assigned PCP 03/23/23 Chaya Mora Specialty Youth Coordinator 06/24/23 Ariel Mae LGSW Record Keeper 06/24/23 Tu Briscoe MD [address] [place] [address] DEPARTMENT OF SURGERY [place], [place] [address] Surgery 06/24/23 documented as of this encounter
--- OUTSIDE RECORDS SUMMARY | 2023-08-01 08:04 | XMS_ITS | Encounter Summary ---
Author Name Unknown Organization [place] Address [address] [place] [address] Care Team Providers Care Teacher Resource Name Role Phone Rusty Chilel Unavailable Brendan Larkin MD Unavailable MassimSandra johnson APRN DEEP FRYER ASSEMBLER Primary Care Prov ider Sandra Baird APRN DEEP FRYER ASSEMBLER Unavailable + Cynthia Smiley MD Unavailable [phone] Jagdish Sibley MD Unavailable [phone] Kevin Wells MD Unavailable [phone] Sandra Baird APRN DEEP FRYER ASSEMBLER Unavailable + Chaya Mora Unavailable Unavailable Ariel Mae FIRE PREVENTION CAPTAIN Unavailable Unavailable Tu Briscoe MD Unavailable [phone] Encounter Details Date Type Department Care Team (Late st Contact Info) Description 08/01/2022 [facility] Medical Advice [facility] and Reconstructive Surgery Clinic [address] 4th [place] [address] Chaya Mora Social History Tobacco [...] place to sleep or slept in a intermediate (including now)? No 07/10/2021 Sex and Gender Information Value Date Recorded Sex Assigned at Male 02/04/2020 12:19 PM CDT Gender Identity Female 02/04/2020 12:19 PM CDT Sexual Orientation Lesbian 10/12/2020 12 :02 PM CDT documented as of this encounter Plan of Treatment Upcoming Encounters Date Type Department Care Team (Late st Contact Info) Description 10/29/2023 2:40 PM CDT Office Visit [facility] Clinic [address] [address] Jagdish Sibley MD [address] [place] [address]345 11/20/2023 3:45 PM CDT Office Visit [facility] Plastic and Reconstructive Surgery Clinic [place] [address] [facility] 4th [place] [phone] [place] [address] [place] [address] documented as of this encounter Visit Diagnoses Not on filedocumented in this encounter Additional Health Concerns Assessment Noted Time PHQ-9 Depression Total Score: 10 022 1:09 PM CDT documented as of this encounter Care Teams Teacher Resource Relationship Specialty Start Date End Date Sandra Baird APRN DEEP FRYER ASSEMBLER [address] [place] [address] PCP - General Family Medicine 06/10/20 Rusty Chilel Specialty Light Industrial Plastic Surgery 02/04/20 Brendan Larkin MD [address] [place] [address] Plastic Surgery 05/09/20 Sandra Baird APRN DEEP FRYER ASSEMBLER [address] [place] [address] Assigned PCP 06/26/20 01/11/23 Cynthia Smiley MD [address] [place] [address] 195 [place] [address] Plastic Surgery 07/26/20 Jagdish Silbey MD [address] [place] [address] 739805 Assigned Surgical Provider 01/08/21 Kevin Wells MD [address] [place] [address] 039632 Assigned PCP 01/12/23 03/22/23 Sandra Baird APRN DEEP FRYER ASSEMBLER [address] [place] [address] Assigned PCP 03/23/23 Chaya Mora Specialty Light Industrial 06/24/23 Ariel Mae [facility] Slip Laster 06/24/23 Tu Briscoe MD [address] [place] [address] [place] [address] Surgery 06/24/23 documented as of this encounter
--- OUTSIDE RECORDS SUMMARY | 2023-08-01 08:04 | XMS_ITS | Encounter Summary ---
Author Name Unknown Organization [facility] Address [address] [place] [address] Care Team Providers Care Truck Trailer Final Inspector Name Role Phone Rusty Chilel Unavailable Brendan Larkin MD Unavailable Sandra Baird APRN ADMINISTRATIVE COURT JUSTICE Primary Care Prov ider Sandra Baird APRN ADMINISTRATIVE COURT JUSTICE Unavailable + Cynthia Smiley MD Unavailable [phone] Cynthia Smiley MD Unavailable [phone] Jagdish Sibley MD Unavailable [phone] Keivn Wells MD Unavailable [phone] Sandra Baird APRN ADMINISTRATIVE COURT JUSTICE Unavailable + Chaya Mora Unavailable Unavailable Ariel Mae [facility] Unavailable Unavailable Tu Briscoe MD Unavailable [phone] Reason for Visit * Reason Onset Date Comments Refill Request 05/28/2021 sertraline (ZOLO FT) 50 MG tablet Encounter Details Date Type Department Care Team (Late st Contact Info) Description 05/28/2021 Refill [facility] [address] [place] [phone] Sandra Baird APRN ADMINISTRATIVE COURT JUSTICE [address] [place] [address] Refill Request (sertraline (ZOLOFT) 50 MG tablet) Social History Tobacco Use Types Packs/Day Years [...] * Telephone Encounter - Jennifer Dorman - 06/06/2021 11:12 AM CST letter sent S COORDINATOR * Telephone Encounter - Jennifer Dorman - 05/30/2021 2:54 PM CST LVM for pt to call back please assist with scheduling a follow up for additional refills S COORDINATOR * Telephone Encounter - Sandra Baird APRN CNP - 05/29/2021 10:15 PM CST Will order cam refill; patient needs visit (virtual or clinic ok) prior to additional refills. Please call to notify. Anastacia Obando CPNP S COORDINATOR * Telephone Encounter - Ciarra Tejeda RN - 05/29/2021 3:53 PM CST Images from the original note were not included. Routing refill request to provider for review/approval because: SSRIs Protocol Failed 05/28/2021 09:31 AM Protocol Details PHQ-9 score less than 5 in past 6 months Recent (6 mo) or future (30 days) visit within the authorizing provider's specialty Medication is active on med list Patient is age 18 or older No active on record No positive test in last 12 months Ciarra Tejeda RN [facility] S COORDINATOR documented in this encounter Plan of Treatment Upcoming Encounters Date Type Department Care Team (Late st Contact Info) Description 10/29/2023 2:40 PM CDT Office Visit [facility] Plastic and Reconstructive Surgery [address] [phone] Jagdish Sibley MD [address] [place] [address] 764305 11/20/2023 3:45 PM CDT Office Visit [facility] Plastic and Reconstructive Surgery [address] [phone] [place] [address] [place] [address] documented as of this encounter Visit Diagnoses Diagnosis 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 and adult Depression, unspecified depression type documented in this encounter Additional Health Concerns Infection Onset Date Last Indicated Resolved Time Rule Out C-difficile 09/24/2021 09/24/2021 022 4:45 PM CDT Assessment Noted Time PHQ-9 Depression Total Score: 7 02/18/20 21 12:52 PM CDT documented as of this encounter Care Teams Truck Trailer Final Inspector Relationship Specialty Start Date End Date Sandra Baird APRN ADMINISTRATIVE COURT JUSTICE [address] [place] [address] PCP - General Family Medicine 06/10/20 Rusty Chilel Specialty Fast Food Assistant Restaurant Manager Plastic Surgery 02/04/20 Brendan Larkin MD [address] [place] [address] Plastic Surgery 05/09/20 Sandra Baird APRN ADMINISTRATIVE COURT JUSTICE [address] [place] [address] Assigned PCP 06/26/20 01/11/23 Cynthia Smiley MD [address] [place] [address] Plastic Surgery 07/26/20 Cynthia Smiley MD [address] [place] [address] Assigned Pediatric Specialist Provider 07/31/20 01/26/22 Jagdish Sibley MD 909 [place] [address] Assigned Surgical Provider 01/08/21 [place] [address] [place] [address] Assigned PCP 01/12/23 03/22/23 Sandra Baird APRN ADMINISTRATIVE COURT JUSTICE [address] [place] [address] Assigned PCP 03/23/23 Chaya Mora Specialty Fast Food Assistant Restaurant Manager 06/24/23 Ariel Mae, [facility] Calculus Teacher 06/24/23 Tu Briscoe MD [address] [facility] [place] [address] Surgery 06/24/23 documented as of this encounter
--- OUTSIDE RECORDS SUMMARY | 2023-08-01 08:04 | XMS_ITS | Encounter Summary ---
Author Name Unknown Organization [facility] Address [address] [place] [address] Care Team Providers Care Medical Review Coordinator Name Role Phone Rusty Chilel Unavailable Brendan Larkin MD Unavailable MassSandra alvarado APRN BOOK CUTTER Primary Care Prov ider Sandra Baird APRN BOOK CUTTER Unavailable + Cynthia Smiley MD Unavailable [phone] Cynthia Smiley MD Unavailable [phone] Jagdish Sibley MD Unavailable [phone] Kevin Wells MD Unavailable [phone] Sandra Baird APRN BOOK CUTTER Unavailable + Chaya Mora Unavailable Unavailable Ariel Mae [facility] Unavailable Unavailable Tu Briscoe MD Unavailable [phone] Encounter Details Date Type Department Care Team (Late st Contact Info) Description 2021 [facility] Plastic and Reconstructive Surgery Clinic [address] 4th [place] [address] Merritt Medina, RN Social History [...] place to sleep or slept in a detention (including now)? No 07/10/2021 Sex and Gender [...] Description 10/29/2023 2:40 PM CDT Office Visit [facility] Reconstructive Surgery Clinic [address] [place] [phone] Jagdish Sibley MD [address] [place], [place] 5865[address] 11/20/2023 3:45 PM CDT Office Visit [facility]astic and Reconstructive Surgery Clinic [address] [place] [phone] [place] [address] [place] [address] documented as of this encounter Visit Diagnoses Not on filedocumented in this encounter Additional Health Concerns Infection Onset Date Last Indicated Resolved Time Rule Out C-difficile 09/24/2021 09/24/2021 022 4:45 PM CDT Assessment Noted Time PHQ-9 Depression Total Score: 7 02/18/20 21 12:52 PM CDT documented as of this encounter Care Teams Medical Review Coordinator Relationship Specialty Start Date End Date Sandra Baird APRN BOOK CUTTER [address] [place] [address] PCP - General Family Medicine 06/10/20 Rusty Chilel Specialty Culinary Worker Plastic Surgery 02/04/20 Brendan Larkin MD [address] [place] [address] Plastic Surgery 05/09/20 Sandra Baird APRN BOOK CUTTER [address] [place] [address] Assigned PCP 06/26/20 01/11/23 Cynthia Smiley MD [address] [place] [address] 195 [place], [place] 305995 Plastic Surgery 07/26/20 Cynthia Smiley MD 420 [facility] 195 [place] [address] Assigned Pediatric Specialist Provider 07/31/20 01/26/22 Jagdish Sibley MD [address] [place] [address] Assigned Surgical Provider 01/08/21 [place] [address] [place] [address] 421822 Assigned PCP 01/12/23 03/22/23 Sandra Baird APRN BOOK CUTTER [address] [place] [address] Assigned PCP 03/23/23 Chaya Mora Specialty Culinary Worker 06/24/23 Ariel Mae LGSW Debt Counselor 06/24/23 Tu Briscoe MD 420 [facility] [place] [address] Surgery 06/24/23 documented as of this encounter
--- OUTSIDE RECORDS SUMMARY | 2023-08-01 08:04 | XMS_ITS | Encounter Summary ---
Author Name Unknown Organization [facility] Address [address] [place] [address] Care Team Providers Care Digital Analyst Name Role Phone Rusty Chilel Unavailable Brendan Larkin MD Unavailable Sandra Baird APRN DOCUMENT REVIEW SPECIALIST Primary Care Prov ider Sandra Baird APRN DOCUMENT REVIEW SPECIALIST Unavailable + Cynthia Smiley MD Unavailable [phone] Cynthia Smiley MD Unavailable [phone] Jagdish Sibley MD Unavailable [phone] Kevin Wells MD Unavailable Sandra Baird APRN DOCUMENT REVIEW SPECIALIST Unavailable + Chaya Mora Unavailable Unavailable Ariel Mae [facility] Unavailable Unavailable Tu Briscoe MD Unavailable [phone] Encounter Details Date Type Department Care Team (Late st Contact Info) Description 07/30/2021 [facility] Medical Advice [facility] [address] [place] [address] Sandra Baird APRN DOCUMENT REVIEW SPECIALIST [address] [place] [address] Social History Tobacco Use Types Packs/Day [...] place to sleep or slept in a fpc (including now)? No 07/10/2021 Sex and Gender [...] Telephone Encounter - Porsha Garduno RN - 07/31/2021 11:29 AM CDT Please see mychart message below. Porsha Garduno RN, BSN [facility] documented in this encounter Plan of Treatment Upcoming Encounters Date Type Department Care Team (Late st Contact Info) Description 10/29/2023 2:40 PM CDT Office Visit [facility] Plastic and Reconstructive Surgery [address] [phone] Jagdish Sibley MD [address] [place] [address] 386975 11/20/2023 3:45 PM CDT Office Visit [facility] Plastic and Reconstructive Surgery [address] [phone] [place] [address] [place] [address] documented as of this encounter Visit Diagnoses Not on filedocumented in this encounter Additional Health Concerns Infection Onset Date Last Indicated Resolved Time Rule Out C-difficile 09/24/2021 09/24/2021 022 4:45 PM CDT Assessment Noted Time PHQ-9 Depression Total Score: 7 02/18/20 21 12:52 PM CDT documented as of this encounter Care Teams Digital Analyst Relationship Specialty Start Date End Date Sandra Baird APRN DOCUMENT REVIEW SPECIALIST [address] [place] [address] PCP - General Family Medicine 06/10/20 Rusty Chilel Specialty Embossing Clerk Plastic Surgery 02/04/20 Brendan Larkin MD [address] [place] [address] Plastic Surgery 05/09/20 Sandra Baird APRN DOCUMENT REVIEW SPECIALIST [address] [place] [address] Assigned PCP 06/26/20 01/11/23 Cynthia Smiley MD [address] [place] [address] 954565 Plastic Surgery 07/26/20 Cynthia Smiley MD [address] [place] [address] 327495 Assigned Pediatric Specialist Provider 07/31/20 01/26/22 Jagdish Sibley MD [address] [place], [place] 371175 Assigned Surgical Provider 01/08/21 [place] [address] [place] [address] 822572 Assigned PCP 01/12/23 03/22/23 Sandra Baird APRN DOCUMENT REVIEW SPECIALIST [address] [place] [address] Assigned PCP 03/23/23 Chaya Mora Specialty Embossing Clerk 06/24/23 Ariel Mae LGSW Fire Engine Operator 06/24/23 Tu Briscoe MD [address] [facility] DEPARTMENT OF SURGERY [place], [place] 627[address] Surgery 06/24/23 documented as of this encounter
--- OUTSIDE RECORDS SUMMARY | 2023-08-01 08:04 | XMS_ITS | Encounter Summary ---
Author Name Unknown Organization [place] Address [address] [place] [address] Care Team Providers Care Early Childhood Special Educator Name Role Phone Rusty Chilel Unavailable Brendan Larkin MD Unavailable Sandra Baird APRN HALL COORDINATOR Primary Care Prov ider Cynthia Smiley MD Unavailable [phone] Jagdish Sibley MD Unavailable [phone] Sandra Baird APRN HALL COORDINATOR Unavailable + Reason for Visit * Reason Onset Date Comments Appointment 06/11/2023 Gender Care Care Team 06/11/2023 Encounter Details Date Type Department Care Team (Late st Contact Info) Description 06/11/2023 Telephone [facility] Plastic Surgery Clinic [address], [facility] [address] [place] [address] Freddie Santos MD [address] [place] [address] 200 [place], [place] [phone] Appointment (Gender Care); Care Team Social History Tobacco Use Types [...] place to sleep or slept in a jail (including now)? No 07/10/2021 Adolescent Education Answer Date Record ed Getting School Help Needed Not on file 01/05 Sex and Gender Information Value Date Recorded Sex Assigned at Male 02/04/2020 12:19 PM CDT Gender Identity Female 02/04/2020 12:19 PM CDT Sexual Orientation Lesbian 10/12/2020 12 :02 PM CDT documented as of this encounter Miscellaneous Notes * Telephone Encounter - Sailaja Forde - 06/11/2023 11:31 AM CST [facility] Phone Message May a detailed message be left on voicemail: yes Reason for Call: Other: Pt is seeking Top Surgery and is requesting Dr Santos. Pt previously seen Pariser for their bottom surgery. Please review and call pt back to discuss further. Thank you! Pt is MTF, pronouns: she/her/hers and prefers to be called Mine. Action Taken: Message routed to: [facility] ([facility] [[id number]] Travel Screening: Not Applicable R TOBACCO HEAD documented in this encounter Plan of Treatment Upcoming Encounters Date Type Department Care Team (Late st Contact Info) Description 10/29/2023 2:40 PM CDT Office Visit [facility] Plastic and Reconstructive Surgery [address] [address] Jagdish Sibley MD [address] [place] [id number] 11/20/2023 3:45 PM CDT Office Visit [facility] Plastic and Reconstructive Surgery [address] [phone] [place] [address] [address] [place] [address] documented as of this encounter Visit Diagnoses Not on filedocumented in this encounter Additional Health Concerns Assessment Noted Time PHQ-9 Depression Total Score: 10 022 1:09 PM CDT documented as of this encounter Care Teams Early Childhood Special Educator Relationship Specialty Start Date End Date Sandra Baird APRN HALL COORDINATOR [address] [facility] [address] [place], [place] 325213 PCP - General Family Medicine 06/10/20 Rusty Chilel Specialty Construction Checker Plastic Surgery 02/04/20 Brendan Larkin MD [address] [place] [address] Plastic Surgery 05/09/20 Cynthia Smiley MD [address] [place] [address] 859385 Plastic Surgery 07/26/20 Jagdish Sibley MD [address] [place] [address] 109165 Assigned Surgical Provider 01/08/21 Sandra Baird APRN [facility] [address] [place], [place] [address] Assigned PCP 03/23/23 documented as of this encounter
--- OUTSIDE RECORDS SUMMARY | 2023-08-01 08:05 | XMS_ITS | Encounter Summary ---
Author Name Unknown Organization [place] Address [address] [place] [address] Care Team Providers Care Social Insurance Specialist Name Role Phone Rusty Chilel Unavailable Brendan Larkin MD Unavailable Sandra Baird APRN SPECIAL PROCEDURES TECHNOLOGIST Primary Care Prov ider Sandra Baird APRN SPECIAL PROCEDURES TECHNOLOGIST Unavailable + Cynthia Smiley MD Unavailable [phone] Cynthia Smiley MD Unavailable [phone] Jagdish Sibley MD Unavailable [phone] Kevin Wells MD Unavailable Sandra Baird APRN SPECIAL PROCEDURES TECHNOLOGIST Unavailable + Chaya Mora Unavailable Unavailable Ariel Mae [facility] Unavailable Unavailable Tu Briscoe MD Unavailable [phone] Reason for Visit * Reason Onset Date Comments Refill Request 12/13/2020 Encounter Details Date Type Department Care Team (Late st Contact Info) Description 12/13/2020 [facility] Medical Advice [facility] [address] [place] [address] Sandra Baird APRN SPECIAL PROCEDURES TECHNOLOGIST [address] [place] [address] Refill Request Social History Tobacco Use Types [...] 01/14 PHQ-2 Answer Date Recorded PHQ-2 Score 3 04/11/2020 Sex and Gender Information Value Date Recorded Sex Assigned at Male 02/04/2020 12:19 PM CDT Gender Identity Female 02/04/2020 12:19 PM CDT Sexual Orientation Lesbian 10/12/2020 12 :02 PM CDT documented as of this encounter Miscellaneous Notes * Telephone Encounter - Sonia Orozco RN - 12/15/2020 2:11 PM CDT Images from the original note were not included. * Telephone Encounter - Sandra Baird APRN CNP - 12/14/2020 8:25 AM CDT Sending bridge rx as patient with upcoming appt 12/21/20 for med review and management. Will need labs at that time. SAMSON Galaviz * Telephone Encounter - Ruchi Woods RN - 12/14/2020 7:19 AM CDT Routing refill request to provider for review/approval because: Labs not current: sodium Requesting to a different pharmacy then sent. Ruchi Woods RN, [facility] Triage * Telephone Encounter - Toma Price - 12/13/2020 2:01 PM CDT [facility] [address], [place] [address] Pt is almost out of [place] and would like this HEMANT documented in this encounter Plan of Treatment Upcoming Encounters Date Type Department Care Team (Late st Contact Info) Description 10/29/2023 2:40 PM CDT Office Visit [facility] Plastic and Reconstructive Surgery [address] [place] [phone] Jagdish Sibley MD [address] [place] [address] 11/20/2023 3:45 PM CDT Office Visit [facility] Plastic and Reconstructive Surgery [address] [phone] [place] [address] [place] [address] documented as of this encounter Visit Diagnoses Diagnosis 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 and adult documented in this encounter Additional Health Concerns Infection Onset Date Last Indicated Resolved Time Rule Out C-difficile 09/24/2021 09/24/2021 022 4:45 PM CDT Assessment Noted Time PHQ-9 Depression Total Score: 14 020 5:59 PM TAIL DOGGER documented as of this encounter Care Teams Social Insurance Specialist Relationship Specialty Start Date End Date Sandra Baird APRN SPECIAL PROCEDURES TECHNOLOGIST [address] [address] [address] PCP - General Family Medicine 06/10/20 Rusty Chilel Specialty Urban Designer Plastic Surgery 02/04/20 Brendan Larkin MD [address] [place] [address] Plastic Surgery 05/09/20 Sandra Baird APRN SPECIAL PROCEDURES TECHNOLOGIST [address] [address] [address] Assigned PCP 06/26/20 01/11/23 Cynthia Smiley MD [address] [address] Plastic Surgery 07/26/20 Cynthia Smiley MD [address] [address] Assigned Pediatric Specialist Provider 07/31/20 01/26/22 Jagdish Silbey MD [address] [place] [address] Assigned Surgical Provider 01/08/21 Kevin Wells MD [address] [place] [address] Assigned PCP 01/12/23 03/22/23 Sandra Baird APRN SPECIAL PROCEDURES TECHNOLOGIST [address] [place] [address] Assigned PCP 03/23/23 Chaya Mora Specialty Urban Designer 06/24/23 Ariel Mae [facility] Confidential Investigator 06/24/23 Tu Briscoe MD [address] [facility] [place] [address] Surgery 06/24/23 documented as of this encounter
--- OUTSIDE RECORDS SUMMARY | 2023-08-01 08:05 | XMS_ITS | Encounter Summary ---
Author Name Unknown Organization [place] Address [address] [place] [address] Care Team Providers Care Wire Straightening Machine Operator Name Role Phone Rusty Chilel Unavailable Brendan Larkin MD Unavailable MassimSandra johnson APRN HISTORIC CLOTHING AND COSTUME MAKER Primary Care Prov ider Sandra Baird APRN HISTORIC CLOTHING AND COSTUME MAKER Unavailable + Cynthia Smiley MD Unavailable [phone] Cynthia Smiley MD Unavailable [phone] Jagdish Sibley MD Unavailable [phone] Kevin Wells MD Unavailable Sandra Baird APRN HISTORIC CLOTHING AND COSTUME MAKER Unavailable + Chaya Mora Unavailable Unavailable Ariel Mae [facility] Unavailable Unavailable Tu Briscoe MD Unavailable [phone] Encounter Details Date Type Department Care Team (Late st Contact Info) Description 01/28/2021 [facility] Medical Advice [facility] [address] [place] [address] Jagdish Sibley MD [address] [place] [address] Social History Tobacco Use Types Packs/Day [...] PHQ-2 Answer Date Recorded PHQ-2 Score 2 12/21/2020 Sex and Gender Information Value Date Recorded Sex Assigned at Male 02/04/2020 12:19 PM CDT Gender Identity Female 02/04/2020 12:19 PM CDT Sexual Orientation Lesbian 10/12/2020 12 :02 PM CDT COVID-19 Exposure Response Date Recorded In the last month, have you been in contact with someone who was confirmed or suspected to have Coronavirus / COVID-19? No / Unsure 01/03/2021 1:02 PM CDT documented as of this encounter Miscellaneous Notes * Telephone Encounter - Genny Nova RN - 01/30/2021 4:31 PM CDT I will call her. Genny documented in this encounter Plan of Treatment Upcoming Encounters Date Type Department Care Team (Late st Contact Info) Description 10/29/2023 2:40 PM CDT Office Visit [facility]astic [facility] Reconstructive Surgery Clinic [address] [address] Jagdish Sibley MD [address] [place] [address] 1666[address] 11/20/2023 3:45 PM CDT Office Visit [facility] Plastic and Reconstructive Surgery [address] [address] [place] [address] PLAST[place] AND [place], [place] [address] documented as of this encounter Visit Diagnoses Not on filedocumented in this encounter Additional Health Concerns Infection Onset Date Last Indicated Resolved Time Rule Out C-difficile 09/24/2021 09/24/2021 022 4:45 PM CDT Assessment Noted Time PHQ-9 Depression Total Score: 14 020 5:59 PM BACKUP SAWYER documented as of this encounter Care Teams Wire Straightening Machine Operator Relationship Specialty Start Date End Date Sandra Baird APRN HISTORIC CLOTHING AND COSTUME MAKER [address] [place] [address] PCP - General Family Medicine 06/10/20 Rusty Chilel Specialty Deli Worker Plastic Surgery 02/04/20 Brendan Larkin MD [address] [place] [address] Plastic Surgery 05/09/20 Sandra Baird APRN HISTORIC CLOTHING AND COSTUME MAKER [address] [place] [address] Assigned PCP 06/26/20 01/11/23 Cynthia Smiley MD [address] 383835 Plastic Surgery 07/26/20 Cynthia Smiley MD [address] [phone] Assigned Pediatric Specialist Provider 07/31/20 01/26/22 Jagdish Sibley MD [address] [place], [place] 136315 Assigned Surgical Provider 01/08/21 Kevin Wells MD [address] [place] [address] Assigned PCP 01/12/23 03/22/23 Sandra Baird APRN HISTORIC CLOTHING AND COSTUME MAKER [address] [place] [address] Assigned PCP 03/23/23 Chaya Mora Specialty Deli Worker 06/24/23 Ariel Mae LGSW Boiling Tub Operator 06/24/23 Tu Briscoe MD [address] [place] [address] [place] [address] Surgery 06/24/23 documented as of this encounter
--- OUTSIDE RECORDS SUMMARY | 2023-08-01 08:05 | XMS_ITS | Encounter Summary ---
Author Name Unknown Organization [place] Address [address] [place] [address] Care Team Providers Care Griddle Cook Name Role Phone Rusty Chilel Unavailable Brendan Larkin MD Unavailable MassSandra alvarado APRN GELATIN MAKER UTILITY Primary Care Prov ider Sandra Baird APRN GELATIN MAKER UTILITY Unavailable + Cynthia Smiley MD Unavailable [phone] Cynthia Smiley MD Unavailable [phone] Jagdish Sibley MD Unavailable [phone] Kevin Wells MD Unavailable [phone] Sandra Baird APRN GELATIN MAKER UTILITY Unavailable + Chaya Mora Unavailable Unavailable Ariel Mae [facility] Unavailable Unavailable Tu Briscoe MD Unavailable [phone] Encounter Details Date Type Department Care Team (Late st Contact Info) Description 12/08/2020 [facility] Advice [address] [address] Toma Price Social History Tobacco Use Types Packs/Day Years [...] Description 10/29/2023 2:40 PM CDT Office Visit [facility] Plastic and Reconstructive Surgery [address] [phone] Jagdish Sibley MD [address] [place] [address] 11/20/2023 3:45 PM CDT Office Visit [facility] Plastic and Reconstructive Surgery [address] [phone] [place] [address] [place] [address] documented as of this encounter Visit Diagnoses Not on filedocumented in this encounter Additional Health Concerns Infection Onset Date Last Indicated Resolved Time Rule Out C-difficile 09/24/2021 09/24/2021 022 4:45 PM CDT Assessment Noted Time PHQ-9 Depression Total Score: 14 020 5:59 PM SIDE STITCHER documented as of this encounter Care Teams Griddle Cook Relationship Specialty Start Date End Date Sandra Barid APRN GELATIN MAKER UTILITY [address] [place] [address] PCP - General Family Medicine 06/10/20 Rusty Chilel Specialty Manager Pool Plastic Surgery 02/04/20 Brendan Larkin MD [address] [place] [address] Plastic Surgery 05/09/20 Sandra Baird APRN GELATIN MAKER UTILITY [address] [place] [address] Assigned PCP 06/26/20 01/11/23 Cynthia Smiley MD [address] [place] [address] Plastic Surgery 07/26/20 Cynthia Smiley MD [address] [place] [address] Assigned Pediatric Specialist Provider 07/31/20 01/26/22 Jagdish Sibley MD [address] [place] [address] Assigned Surgical Provider 01/08/21 Kevin Wells MD [address] [place] [address] Assigned PCP 01/12/23 03/22/23 Sandra Baird APRN GELATIN MAKER UTILITY [address] [place] [address] Assigned PCP 03/23/23 Chaya Mora Specialty Manager Pool 06/24/23 Ariel Mae LGSW Food Selector 06/24/23 Tu Briscoe MD [address] [place] [address] [place] [address] Surgery 06/24/23 documented as of this encounter
--- OUTSIDE RECORDS SUMMARY | 2023-08-01 08:05 | XMS_ITS | Encounter Summary ---
Author Name Unknown Organization [place] Address [address] [place] [address] Care Team Providers Care Senior Accounting Manager Name Role Phone Rusty Chilel Unavailable Brendan Larkin MD Unavailable MassSandra alvarado APRN PLANER OPERATOR Primary Care Prov ider Sandra Baird APRN PLANER OPERATOR Unavailable + Cynthia Smiley MD Unavailable [phone] Cynthia Smiley MD Unavailable [phone] Jagdish Sibley MD Unavailable [phone] Kevin Wells MD Unavailable [phone] Sandra Baird APRN PLANER OPERATOR Unavailable + Chaya Mora Unavailable Unavailable Ariel Mae [facility] Unavailable Unavailable Tu Briscoe MD Unavailable [phone] Encounter Details Date Type Department Care Team (Late st Contact Info) Description 04/03/2021 [facility] Medical Advice [facility] Plastic and Reconstructive Surgery Clinic [address] 4th [place] [address] Debra Gomes Social History Tobacco Use Types Packs/Day Years [...] have Coronavirus / COVID-19? No / Unsure 03/29/2021 5:15 PM RAILROAD EMERGENCY SERVICES MANAGER documented as of this encounter Plan of Treatment Upcoming Encounters Date Type Department Care Team (Late st Contact Info) Description 10/29/2023 2:40 PM CDT Office Visit [facility] Plastic and Reconstructive Surgery [address] [phone] Jagdish Sibley MD [address] [place] [address] 708945 11/20/2023 3:45 PM CDT Office Visit [facility] Plastic and Reconstructive Surgery [address] [phone] [place] [address] PLASTICS AND ORTHO [place], [place] [address] documented as of this encounter Visit Diagnoses Not on filedocumented in this encounter Additional Health Concerns Infection Onset Date Last Indicated Resolved Time Rule Out C-difficile 09/24/2021 09/24/2021 022 4:45 PM CDT Assessment Noted Time PHQ-9 Depression Total Score: 7 02/18/20 21 12:52 PM CDT documented as of this encounter Care Teams Senior Accounting Manager Relationship Specialty Start Date End Date Sandra Baird APRN PLANER OPERATOR [address] [place] [address] PCP - General Family Medicine 06/10/20 Rusty Chilel Specialty Bumboater Plastic Surgery 02/04/20 Brendan Larkin MD [address] [place] [address] Plastic Surgery 05/09/20 Sandra Baird APRN PLANER OPERATOR [address] [place] [address] Assigned PCP 06/26/20 01/11/23 Cynthia Smiley MD [address] [place] [address] Plastic Surgery 07/26/20 Cynthia Smiley MD [address] [place] [address] Assigned Pediatric Specialist Provider 07/31/20 01/26/22 Jagdish Sibley MD [address] [place] [address] 931825 Assigned Surgical Provider 01/08/21 Kevin Wells MD [address] [place] [address] 470202 Assigned PCP 01/12/23 03/22/23 Sandra Baird APRN PLANER OPERATOR [address] [place] [address] Assigned PCP 03/23/23 Chaya Mora Specialty Bumboater 06/24/23 Ariel Mae MEDICAL RECEPTIONIST BILLER Underwriter 06/24/23 Tu Briscoe MD [address] [place] [address] [place] [address] Surgery 06/24/23 documented as of this encounter
--- OUTSIDE RECORDS SUMMARY | 2023-08-01 08:05 | XMS_ITS | Encounter Summary ---
Author Name Unknown Organization [place] Address [address] [place] [address] Care Team Providers Care Surety Bond Agent Name Role Phone Rusty Chilel Unavailable Brendan Larkin MD Unavailable MassSandra alvarado APRN COMMAND CENTER OFFICER Primary Care Prov ider Sandra Baird APRN COMMAND CENTER OFFICER Unavailable + Cynthia Smiley MD Unavailable [phone] Cynthia Smiley MD Unavailable [phone] Jagdish Sibley MD Unavailable [phone] Kevin Wells MD Unavailable [phone] Sandra Baird APRN COMMAND CENTER OFFICER Unavailable + Chaya Mora Unavailable Unavailable Ariel Mae [facility] Unavailable Unavailable Tu Briscoe MD Unavailable [phone] Encounter Details Date Type Department Care Team (Late st Contact Info) Description 11/11/2020 [facility] Medical Advice [facility] Plastic and Reconstructive Surgery Clinic [address] 4th [place] [address] Debra Gomes Social History Tobacco [...] Description 10/29/2023 2:40 PM CDT Office Visit [facility] Plastic and Reconstructive Surgery [address] [phone] Jagdish Sibley MD [address] [place] [address] 11/20/2023 3:45 PM CDT Office Visit [facility] Plastic and Reconstructive Surgery [address] [phone] [place] [address] [place] [address] documented as of this encounter Visit Diagnoses Not on filedocumented in this encounter Additional Health Concerns Infection Onset Date Last Indicated Resolved Time Rule Out C-difficile 09/24/2021 09/24/2021 022 4:45 PM CDT Assessment Noted Time PHQ-9 Depression Total Score: 14 020 5:59 PM CONTRACTING MANAGER documented as of this encounter Care Teams Surety Bond Agent Relationship Specialty Start Date End Date Sandra Baird APRN COMMAND CENTER OFFICER [address] [place] [address] PCP - General Family Medicine 06/10/20 Rusty Chilel Specialty Butt Welder Plastic Surgery 02/04/20 Brendan Larkin MD [address] [place] [address] Plastic Surgery 05/09/20 Sandra Baird APRN COMMAND CENTER OFFICER [address] [place] [address] Assigned PCP 06/26/20 01/11/23 Cynthia Smiley MD [address] [place] [address] Plastic Surgery 07/26/20 Cynthia Smiley MD [address] [place] [address] Assigned Pediatric Specialist Provider 07/31/20 01/26/22 Jagdish Sibley MD [address] [place] [address] Assigned Surgical Provider 01/08/21 Kevin Wells MD [address] [place] [address] Assigned PCP 01/12/23 03/22/23 Sandra Baird APRN COMMAND CENTER OFFICER [address] [place] [address] Assigned PCP 03/23/23 Chaya Mora Specialty Butt Welder 06/24/23 Ariel Mae LGSW Mailroom Courier 06/24/23 Tu Briscoe MD [address] [facility] [place] [address] Surgery 06/24/23 documented as of this encounter
--- OUTSIDE RECORDS SUMMARY | 2023-08-01 08:05 | XMS_ITS | Encounter Summary ---
Author Name Unknown Organization [place] Address [address] [place] [address] Care Team Providers Care E Commerce Developer Name Role Phone Rusty Chilel Unavailable Brendan Larkin MD Unavailable MassSandra alvarado APRN EARTH SCIENCE PROFESSOR Primary Care Prov ider Sandra Baird APRN EARTH SCIENCE PROFESSOR Unavailable + Cynthia Smiley MD Unavailable [phone] Cynthia Smiley MD Unavailable [phone] Jagdish Sibley MD Unavailable [phone] Kevin Wells MD Unavailable [phone] Sandra Baird APRN EARTH SCIENCE PROFESSOR Unavailable + Chaya Mora Unavailable Unavailable Ariel Mae [facility] Unavailable Unavailable Tu Briscoe MD Unavailable [phone] Encounter Details Date Type Department Care Team (Late st Contact Info) Description 02/01/2021 [facility] Medical Advice [facility] Plastic and Reconstructive Surgery Clinic [address] 4th [place] [address] Debra Gomes Social History Tobacco [...] Description 10/29/2023 2:40 PM CDT Office Visit [facility] Plastic and Reconstructive Surgery [address] [phone] Jagdish Sibley MD [address] [place] [address] 945705 11/20/2023 3:45 PM CDT Office Visit [facility] Plastic and Reconstructive Surgery [address] [phone] [place] [address] [address] PLASTICS AND ORTHO [place], [place] [address] documented as of this encounter Visit Diagnoses Not on filedocumented in this encounter Additional Health Concerns Infection Onset Date Last Indicated Resolved Time Rule Out C-difficile 09/24/2021 09/24/2021 022 4:45 PM CDT Assessment Noted Time PHQ-9 Depression Total Score: 14 020 5:59 PM BRANCH BILLING PAYROLL CLERK documented as of this encounter Care Teams E Commerce Developer Relationship Specialty Start Date End Date Sandra Baird APRN EARTH SCIENCE PROFESSOR [address] [place] [address] PCP - General Family Medicine 06/10/20 Rusty Chilel Specialty Retail Center Receptionist Plastic Surgery 02/04/20 Brendan Larkin MD [address] [place] [address] Plastic Surgery 05/09/20 Sandra Baird APRN EARTH SCIENCE PROFESSOR [address] [place] [address] Assigned PCP 06/26/20 01/11/23 Cynthia Smiley MD [address] [place] [address] Plastic Surgery 07/26/20 Cynthia Smiley MD [address] [place] [address] Assigned Pediatric Specialist Provider 07/31/20 01/26/22 Jagdish Sibley MD [address] [place] [address] 913805 Assigned Surgical Provider 01/08/21 Kevin Wells MD [address] [place] [address] 476152 Assigned PCP 01/12/23 03/22/23 Sandra Baird APRN EARTH SCIENCE PROFESSOR [address] [place] [address] Assigned PCP 03/23/23 Chaya Mora Specialty Retail Center Receptionist 06/24/23 Ariel Mae FILM PROCESSOR Irrigator Overhead 06/24/23 Tu Briscoe MD [address] [place] [address] [place] [address] Surgery 06/24/23 documented as of this encounter
--- OUTSIDE RECORDS SUMMARY | 2023-08-01 08:05 | XMS_ITS | Encounter Summary ---
Author Name Unknown Organization [place] Address [address] [place] [address] Care Team Providers Care Ground Intelligence Officer Name Role Phone Rusty Chilel Unavailable Brendan Larkin MD Unavailable MassimSandra johnson APRN CHAIR MENDER Primary Care Prov ider Sandra Baird APRN CHAIR MENDER Unavailable + Cynthia Smiley MD Unavailable [phone] Cynthia Smiley MD Unavailable [phone] Jagdish Sibley MD Unavailable [phone] Kevin Wells MD Unavailable [phone] Sandra Baird APRN CHAIR MENDER Unavailable + Chaya Mora Unavailable Unavailable Ariel Mae [facility] Unavailable Unavailable Tu Briscoe MD Unavailable [phone] Reason for Visit * Reason Onset Date Comments Refill Request 04/06/2021 Encounter Details Date Type Department Care Team (Late st Contact Info) Description 04/06/2021 [facility] [address] [place] [address] [address] [place] [address] Nba Gomez MD 2019 [facility] [address] [place] [address] Refill Request Social History Tobacco Use Types [...] have Coronavirus / COVID-19? No / Unsure 04/08/2021 7:46 PM [facility] documented as of this encounter Miscellaneous Notes * Telephone Encounter - Sarahi Acharya RN - 04/07/2021 7:56 AM CST Request for medication refill: Providers if patient needs an appointment and you are willing to give a one month supply please refill for one month and send a letter/MyChart using .SMILLIMITEDREFILL .smillimited and route chart to [facility] LAY OUT INSPECTOR (Giving one month refill in non controlled medications is strongly recommendedbefore denial) If refill has been denied, meaning absolutely no refills without visit, please complete the smart phrase .smirxrefuse and route it to the [facility] MED REFILLS pool to inform the patient and the pharmacy. Sarahi Acharya RN HOME HEALTH documented in this encounter Plan of Treatment Upcoming Encounters Date Type Department Care Team (Late st Contact Info) Description 10/29/2023 2:40 PM CDT Office Visit [facility] [address] [address] Jagdish Sibley MD [address] [place] [address] 11/20/2023 3:45 PM CDT Office Visit [facility] Plastic and Reconstructive Surgery Clinic [place] [id number] [facility] [address] 4th [place] [phone] [place] [address] [place] [address] documented as of this encounter Visit Diagnoses Diagnosis 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 and adult documented in this encounter Additional Health Concerns Infection Onset Date Last Indicated Resolved Time Rule Out C-difficile 09/24/2021 09/24/2021 022 4:45 PM CDT Assessment Noted Time PHQ-9 Depression Total Score: 7 02/18/20 21 12:52 PM CDT documented as of this encounter Care Teams Ground Intelligence Officer Relationship Specialty Start Date End Date Sandra Baird APRN CHAIR MENDER [address] [place] [address] PCP - General Family Medicine 06/10/20 Rusty Chilel Specialty Spring Encaser Plastic Surgery 02/04/20 Brendan Larkin MD [address] [place] [address] Plastic Surgery 05/09/20 Sandra Baird APRN CHAIR MENDER [address] [place] [address] Assigned PCP 06/26/20 01/11/23 Cynthia Smiley MD 420 [facility] 195 [place] [address] Plastic Surgery 07/26/20 Cynthia Smiley MD 420 [facility] [address] [address] Assigned Pediatric Specialist Provider 07/31/20 01/26/22 Jagdish Sibley MD 909 [place] [address] Assigned Surgical Provider 01/08/21 [place] [address] [place] [address] 913462 Assigned PCP 01/12/23 03/22/23 Sandra Baird APRN CHAIR MENDER [address] [place] [address] Assigned PCP 03/23/23 Chaya Mora Specialty Spring Encaser 06/24/23 Ariel Mae [facility] Technology Education Instructor 06/24/23 Tu Briscoe MD [address] [place] [address] [place] [address] Surgery 06/24/23 documented as of this encounter
--- OUTSIDE RECORDS SUMMARY | 2023-08-01 08:05 | XMS_ITS | Encounter Summary ---
Author Name Unknown Organization [place] Address [address] [place] [address]. [place] [address] Care Team Providers Care Steel Rule Inspector Name Role Phone Rusty Chilel Unavailable Brendan Larkin MD Unavailable Sandra Baird APRN NATURAL GAS TREATING UNIT OPERATOR Primary Care Prov ider Sandra Baird APRN NATURAL GAS TREATING UNIT OPERATOR Unavailable + Cynthia mSiley MD Unavailable [phone] Cynthia Smiley MD Unavailable [phone] Jagdish Sibley MD Unavailable [phone] Kevin Wells MD Unavailable [phone] Sandra Baird APRN NATURAL GAS TREATING UNIT OPERATOR Unavailable + Chaya Mora Unavailable Unavailable Ariel Mae [facility] Unavailable Unavailable Tu Briscoe MD Unavailable [phone] Encounter Details Date Type Department Care Team (Late st Contact Info) Description 10/29/2020 [facility] Medical Advice [facility] [address] [place] [address] Sandra Baird APRN [address] [address] 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 and adult; Depression, unspecified depression type Social History Tobacco Use Types Packs/Day Years [...] encounter Miscellaneous Notes * Telephone Encounter - Marcie Felipe RN - 10/31/2020 1:48 PM CDT Requested Prescriptions Pending Prescriptions Disp Refills ??? estradiol (ESTRACE) 2 MG tablet 90 tablet 3 Sig: Take 3 tablets (6 mg) by mouth daily 6mg per day Hormone Replacement Therapy Passed - 10/31/2020 9:37 AM Passed - Blood pressure under 140/90 in past 12 months BP Readings from Last 3 Encounters: 07/22/20 128/86 (93 %, Z = 1.50 / 98 %, Z = 2.16)* 06/13/20 110/67 (40 %, Z = -0.26 / 52 %, Z = 0.05)* *BP percentiles are based on the 2017 [...] test on record in past 12 months ??? sertraline (ZOLOFT) 50 MG tablet 90 tablet 1 Sig: Take 1 tablet (50 mg) by mouth daily SSRIs Protocol Failed - 10/31/2020 9:37 AM Failed - PHQ-9 score less than 5 in past 6 months Please review last PHQ-9 score. Passed - Medication is active on med list Passed - Patient is age 18 or older Passed - No active on record Passed - No positive test in last 12 months Passed - Recent (6 mo) or future (30 days) visit within the authorizing provider's specialty Patient had office visit in the last 6 months or has a visit in the next 30 days with authorizing provider or within the authorizing provider's specialty. See Patient Info tab in inbasket, or Choose Columns in Meds & Orders section of the refill encounter. ??? spironolactone (ALDACTONE) 100 MG tablet 60 tablet 0 Sig: Take 2 tablets (200 mg) by mouth daily Diuretics (Including Combos) Protocol Failed - 10/31/2020 9:37 AM Failed - Normal serum sodium on file in past 12 months Recent Labs Lab Test 04/13/20 1528 NA 132* Passed - Blood pressure under 140/90 in past 12 months BP Readings from Last 3 Encounters: 07/22/20 128/86 (93 %, Z = 1.50 / 98 %, Z = 2.16)* 06/13/20 110/67 (40 %, Z = -0.26 / 52 %, Z = 0.05)* *BP percentiles are based on the 2017 [...] 18 or older Passed - No active pregancy on record Passed - Normal serum creatinine on file in past 12 months Recent Labs Lab Test 04/13/20 1528 CR 0.78 Passed - Normal serum potassium on file in past 12 months Recent Labs Lab Test 04/13/20 1528 POTASSIUM 4.2 Passed - No positive test in past 12 months Libby NI, RN documented in this encounter Plan of Treatment Upcoming Encounters Date Type Department Care Team (Late st Contact Info) Description 10/29/2023 2:40 PM CDT Office Visit [facility] Plastic and Reconstructive Surgery [address] [place] [phone] Jagdish Sibley MD 909 [place] [address] 11/20/2023 3:45 PM CDT Office Visit [facility] Plastic and Reconstructive Surgery [address] [place] [phone] [place] [address] [place] [address] documented as of this encounter Visit Diagnoses Diagnosis 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 and adult Depression, unspecified depression type documented in this encounter Additional Health Concerns Infection Onset Date Last Indicated Resolved Time Rule Out C-difficile 09/24/2021 09/24/2021 022 4:45 PM CDT Assessment Noted Time PHQ-9 Depression Total Score: 14 020 5:59 PM VENTILATION WORKER documented as of this encounter Care Teams Steel Rule Inspector Relationship Specialty Start Date End Date Sandra Baird APRN NATURAL GAS TREATING UNIT OPERATOR [address] [place] [address] PCP - General Family Medicine 06/10/20 Rusty Chilel Specialty Rag Grader Plastic Surgery 02/04/20 Brendan Larkin MD [address] [place] [address] Plastic Surgery 05/09/20 Sandra Baird APRN NATURAL GAS TREATING UNIT OPERATOR [address] [place] [address] Assigned PCP 06/26/20 01/11/23 Cynthia Smiley MD 420 [facility] 195 [place] [address] Plastic Surgery 07/26/20 Cynthia Smiley MD 420 [facility] [address] [place] [address] Assigned Pediatric Specialist Provider 07/31/20 01/26/22 Jagdish Sibley MD 909 [place], [place] 738465 Assigned Surgical Provider 01/08/21 [place] [address] [place] [address] 595372 Assigned PCP 01/12/23 03/22/23 Sandra Baird APRN NATURAL GAS TREATING UNIT OPERATOR [address] [place] [address] Assigned PCP 03/23/23 Chaya Mora Specialty Rag Grader 06/24/23 Ariel Mae INTERNAL SECURITY MANAGER Reserve Operator 06/24/23 Tu Briscoe MD 420 [facility] [place] [address] Surgery 06/24/23 documented as of this encounter
--- OUTSIDE RECORDS SUMMARY | 2023-08-01 08:05 | XMS_ITS | Encounter Summary ---
Author Name Unknown Organization [place] Address [address] [place] [address] Care Team Providers Care Facility Security Officer Name Role Phone Rusty Chilel Unavailable Brendan Larkin MD Unavailable MassSandra alvarado APRN APPAREL MANAGER Primary Care Prov ider Sandra Baird APRN APPAREL MANAGER Unavailable + Cynthia Smiley MD Unavailable [phone] Cynthia Smiley MD Unavailable [phone] Jagdish Sibley MD Unavailable [phone] Kevin Wells MD Unavailable [phone] Sandra Baird APRN APPAREL MANAGER Unavailable + Chaya Mora Unavailable Unavailable Ariel Mae [facility] Unavailable Unavailable Tu Briscoe MD Unavailable [phone] Encounter Details Date Type Department Care Team (Late st Contact Info) Description 01/06/2021 [facility] [address] [address] [facility] Social History Tobacco Use Types Packs/Day Years [...] Description 10/29/2023 2:40 PM CDT Office Visit [facility] Plastic and Reconstructive Surgery [address] [phone] Jagdish Sibley MD [address] [place] [address] 738495 11/20/2023 3:45 PM CDT Office Visit [facility] Plastic and Reconstructive Surgery [address] [phone] [place] [address] [place] [address] documented as of this encounter Visit Diagnoses Not on filedocumented in this encounter Additional Health Concerns Infection Onset Date Last Indicated Resolved Time Rule Out C-difficile 09/24/2021 09/24/2021 022 4:45 PM CDT Assessment Noted Time PHQ-9 Depression Total Score: 14 020 5:59 PM AIR SAMPLING AND MONITORING documented as of this encounter Care Teams Facility Security Officer Relationship Specialty Start Date End Date Sandra Baird APRN APPAREL MANAGER [address] [place] [address] PCP - General Family Medicine 06/10/20 Rusty Chilel Specialty Admissions Dean Plastic Surgery 02/04/20 Brendan Larkin MD [address] [place] [address] Plastic Surgery 05/09/20 Sandra Baird APRN APPAREL MANAGER [address] [place] [address] Assigned PCP 06/26/20 01/11/23 Cynthia Smiley MD [address] [place] [address] Plastic Surgery 07/26/20 Cynthia Smiley MD [address] [place] [address] 204725 Assigned Pediatric Specialist Provider 07/31/20 01/26/22 Jagdish Sibley MD [address] [place] [address] 996615 Assigned Surgical Provider 01/08/21 Kevin Wells MD [address] [place] [address] [id number] Assigned PCP 01/12/23 03/22/23 Sandra Baird APRN APPAREL MANAGER [address] [place] [address] Assigned PCP 03/23/23 Chaya Mora Specialty Admissions Dean 06/24/23 Ariel Mae COFFEE BREWER Steam Conditioner Operator 06/24/23 Tu Briscoe MD [address] [place] [address] [place] [address] Surgery 06/24/23 documented as of this encounter
--- OUTSIDE RECORDS SUMMARY | 2023-08-01 08:05 | XMS_ITS | Encounter Summary ---
Author Name Unknown Organization [place] Address [address] [place] [address] Care Team Providers Care Clinical Resource Nurse Name Role Phone Rusty Chilel Unavailable Brendan Larkin MD Unavailable MassimSandra johnson APRN STICKER HAND Primary Care Prov ider Sandra Baird APRN STICKER HAND Unavailable + Cynthia Smiley MD Unavailable [phone] Cynthia Smiley MD Unavailable [phone] Jagdish Sibley MD Unavailable [phone] Kevin Wells MD Unavailable [phone] Sandra Baird APRN STICKER HAND Unavailable + Chaya Mora Unavailable Unavailable Ariel Mae [facility] Unavailable Unavailable Tu Briscoe MD Unavailable [phone] Encounter Details Date Type Department Care Team (Late st Contact Info) Description 09/09/2020 [facility] Plastic and Reconstructive Surgery Clinic [place] 9[address] [facility] [address] 4th [place] [address] Cynthia Smiley MD [address] [place] [address] [facility] 195 [place] [address] Social History Tobacco Use Types Packs/Day [...] Visit [facility] Plastic and Reconstructive Surgery [address] [phone] Jagdish Sibley MD [address] [place] [address] 9760[address] 11/20/2023 3:45 PM CDT Office Visit [facility] Plastic and Reconstructive Surgery [address] [phone] [place] [address] [address] [place] [address] documented as of this encounter Visit Diagnoses Not on filedocumented in this encounter Additional Health Concerns Infection Onset Date Last Indicated Resolved Time Rule Out C-difficile 09/24/2021 09/24/2021 022 4:45 PM CDT Assessment Noted Time PHQ-9 Depression Total Score: 14 020 5:59 PM PRICE ECONOMIST documented as of this encounter Care Teams Clinical Resource Nurse Relationship Specialty Start Date End Date Sandra Baird APRN STICKER HAND [address] [place] [address] PCP - General Family Medicine 06/10/20 Rusty Chilel Specialty Faculty Member Plastic Surgery 02/04/20 Brendan Larkin MD [address] [place] [address] Plastic Surgery 05/09/20 Sandra Baird APRN STICKER HAND [address] [place] [address] Assigned PCP 06/26/20 01/11/23 Cynthia Smiley MD [address] [place] [address] 407065 Plastic Surgery 07/26/20 Cynthia Smiley MD [address] [place] [address] 585145 Assigned Pediatric Specialist Provider 07/31/20 01/26/22 Jagdish Sibley MD 909 [place], [place] [address]275 Assigned Surgical Provider 01/08/21 [place] [address] [place] [address] 964582 Assigned PCP 01/12/23 03/22/23 Sandra Baird APRN STICKER HAND [address] [place] [address] Assigned PCP 03/23/23 Chaya Mora Specialty Faculty Member 06/24/23 Ariel Mae LGSW Millinery Department Manager 06/24/23 Tu Briscoe MD 420 [facility] DEPARTMENT OF SURGERY [place], [place] 657725 Surgery 06/24/23 documented as of this encounter
--- OUTSIDE RECORDS SUMMARY | 2023-08-01 08:05 | XMS_ITS | Encounter Summary ---
Author Name Unknown Organization [place] Address [address] [place] [address] Care Team Providers Care Reading Intervention Teacher Name Role Phone Rusty Chilel Unavailable Brendan Larkin MD Unavailable MassimSandra johnson APRN MAXILLOFACIAL PROSTHODONTIST Primary Care Prov ider Sandra Baird APRN MAXILLOFACIAL PROSTHODONTIST Unavailable + Cynthia Smiley MD Unavailable [phone] Cynthia Smiley MD Unavailable [phone] Jagdish Sibley MD Unavailable [phone] Kevin Wells MD Unavailable Sandra Baird APRN MAXILLOFACIAL PROSTHODONTIST Unavailable + Chaya Mora Unavailable Unavailable Ariel Mae [facility] Unavailable Unavailable Tu Briscoe MD Unavailable [phone] Encounter Details Date Type Department Care Team (Late st Contact Info) Description 10/14/2020 [facility] Plastic and Reconstructive Surgery Clinic [place] [address] [facility] [address] 4th [place] [address] Cynthia Smiley MD [address] [place] [address] [facility] 195 [place] [address] Social History Tobacco Use Types [...] Description 10/29/2023 2:40 PM CDT Office Visit [facility] Plastic and Reconstructive Surgery [address] [phone] Jagdish Sibley MD [address] [place] [address] 11/20/2023 3:45 PM CDT Office Visit [facility] Plastic and Reconstructive Surgery [address] [phone] [place] [address] [address] [place] [address] documented as of this encounter Visit Diagnoses Not on filedocumented in this encounter Additional Health Concerns Infection Onset Date Last Indicated Resolved Time Rule Out C-difficile 09/24/2021 09/24/2021 022 4:45 PM CDT Assessment Noted Time PHQ-9 Depression Total Score: 14 020 5:59 PM FACING CUTTING MACHINE OPERATOR documented as of this encounter Care Teams Reading Intervention Teacher Relationship Specialty Start Date End Date Sandra Baird APRN MAXILLOFACIAL PROSTHODONTIST [address] [place] [address] PCP - General Family Medicine 06/10/20 Rusty Chilel Specialty Dredge Pipe Operator Plastic Surgery 02/04/20 Brendan Larkin MD [address] [place] [address] Plastic Surgery 05/09/20 Sandra Baird APRN MAXILLOFACIAL PROSTHODONTIST [address] [place] [address] Assigned PCP 06/26/20 01/11/23 Cynthia Smiley MD [address] [place] [address] 141265 Plastic Surgery 07/26/20 Cynthia Smiley MD [address] [place] [address] 584775 Assigned Pediatric Specialist Provider 07/31/20 01/26/22 Jagdish Sibley MD 909 [place], [place] 213025 Assigned Surgical Provider 01/08/21 [place] [address] [place] [address] 415272 Assigned PCP 01/12/23 03/22/23 Sandra Baird APRN MAXILLOFACIAL PROSTHODONTIST [address] [place] [address] Assigned PCP 03/23/23 Chaya Mora Specialty Dredge Pipe Operator 06/24/23 Ariel Mae LGSW Elevator Attendant 06/24/23 Tu Briscoe MD 420 [facility] DEPARTMENT OF SURGERY [place], [place] 065[address] Surgery 06/24/23 documented as of this encounter
--- OUTSIDE RECORDS SUMMARY | 2023-08-01 08:05 | XMS_ITS | Encounter Summary ---
Author Name Unknown Organization [place] Address [address] [place] [address] Care Team Providers Care Research Geologist Name Role Phone Rusty Chilel Unavailable Brendan Larkin MD Unavailable MassSandra alvarado APRN FLORAL DESIGNER Primary Care Prov ider Sandra Baird APRN FLORAL DESIGNER Unavailable + Cynthia Smiley MD Unavailable [phone] Cynthia Smiley MD Unavailable [phone] Jagdish Sibley MD Unavailable [phone] Kevin Wells MD Unavailable [phone] Sandra Baird APRN FLORAL DESIGNER Unavailable + Chaya Mora Unavailable Unavailable Ariel Mae [facility] Unavailable Unavailable Tu Briscoe MD Unavailable [phone] Encounter Details Date Type Department Care Team (Late st Contact Info) Description 01/06/2021 [facility]astic and Reconstructive Surgery Clinic [address] 4th [place] [address] Debra Gomes Social History Tobacco [...] [facility] [address] [phone] Jagdish Sibley MD [address] [place] [address] 732585 11/20/2023 3:45 PM CDT Office Visit [facility] Plastic and Reconstructive Surgery [address] [phone] [place] [address] [address] PLASTICS AND ORTHO [place], [place] 18[address] documented as of this encounter Visit Diagnoses Not on filedocumented in this encounter Additional Health Concerns Infection Onset Date Last Indicated Resolved Time Rule Out C-difficile 09/24/2021 09/24/2021 022 4:45 PM CDT Assessment Noted Time PHQ-9 Depression Total Score: 14 020 5:59 PM MEDICAL DIRECTOR documented as of this encounter Care Teams Research Geologist Relationship Specialty Start Date End Date Sandra Baird APRN FLORAL DESIGNER [address] [place] [address] PCP - General Family Medicine 06/10/20 Rusty Chilel Specialty Assistant Professor Of Archaeology Plastic Surgery 02/04/20 Brendan Larkin MD [address] [place] [address] Plastic Surgery 05/09/20 Sandra Baird APRN FLORAL DESIGNER [address] [place] [address] Assigned PCP 06/26/20 01/11/23 Cynthia Smiley MD [address] [place] [address] Plastic Surgery 07/26/20 Cynthia Smiley MD [address] [place] [address] Assigned Pediatric Specialist Provider 07/31/20 01/26/22 Jagdish Sibley MD [address] [place] [address] 813955 Assigned Surgical Provider 01/08/21 Kevin Wells MD [address] [place] [address] 165502 Assigned PCP 01/12/23 03/22/23 Sandra Baird APRN FLORAL DESIGNER [address] [place] [address] Assigned PCP 03/23/23 Chaya Mora Specialty Assistant Professor Of Archaeology 06/24/23 Ariel Mae KNIFER UP Explosive Ordnance Handler 06/24/23 Tu Briscoe MD [address] [place] [address] [place] [address] Surgery 06/24/23 documented as of this encounter
--- OUTSIDE RECORDS SUMMARY | 2023-08-01 08:05 | XMS_ITS | Encounter Summary ---
Author Name Unknown Organization [place] Address [address] [place] [address] Care Team Providers Care Caterers Helper Name Role Phone Rusty Chilel Unavailable Brendan Larkin MD Unavailable MassSandra alvarado APRN PAINT LINE OPERATOR Primary Care Prov ider Sandra Baird APRN PAINT LINE OPERATOR Unavailable + Cynthia Smiley MD Unavailable [phone] Cynthia Smiley MD Unavailable [phone] Jagdish Sibley MD Unavailable [phone] Kevin Wells MD Unavailable [phone] Sandra Baird APRN PAINT LINE OPERATOR Unavailable + Chaya Mora Unavailable Unavailable Ariel Mae [facility] Unavailable Unavailable Tu Briscoe MD Unavailable [phone] Encounter Details Date Type Department Care Team (Late st Contact Info) Description 01/11/2021 [facility] [address] [address] [facility] Social History Tobacco Use Types Packs/Day Years [...] Description 10/29/2023 2:40 PM CDT Office Visit [facility] Plastic and Reconstructive Surgery [address] [phone] Jagdish Sibley MD [address] [place] [address]605 11/20/2023 3:45 PM CDT Office Visit [facility] Plastic and Reconstructive Surgery [address] [phone] [place] [address] [place] [address] documented as of this encounter Visit Diagnoses Not on filedocumented in this encounter Additional Health Concerns Infection Onset Date Last Indicated Resolved Time Rule Out C-difficile 09/24/2021 09/24/2021 022 4:45 PM CDT Assessment Noted Time PHQ-9 Depression Total Score: 14 020 5:59 PM ONION TOPPER documented as of this encounter Care Teams Caterers Helper Relationship Specialty Start Date End Date Sandra Baird APRN PAINT LINE OPERATOR [address] [place] [address] PCP - General Family Medicine 06/10/20 Rusty Chilel Specialty Software Computer Specialist Plastic Surgery 02/04/20 Brendan Larkin MD [address] [place] [address] Plastic Surgery 05/09/20 Sandra Baird APRN PAINT LINE OPERATOR [address] [place] [address] Assigned PCP 06/26/20 01/11/23 Cynthia Smiley MD [address] [place] [address] Plastic Surgery 07/26/20 Cynthia Smiley MD [address] [place] [address] 228005 Assigned Pediatric Specialist Provider 07/31/20 01/26/22 Jagdish Sibley MD [address] [place] [address] [id number] Assigned Surgical Provider 01/08/21 Kevin Wells MD [address] [place] [address] 124462 Assigned PCP 01/12/23 03/22/23 Sandra Baird APRN PAINT LINE OPERATOR [address] [place] [address] Assigned PCP 03/23/23 Chaya Mora Specialty Software Computer Specialist 06/24/23 Ariel Mae ASP NET DEVELOPER Cigarette Vendor 06/24/23 Tu Briscoe MD [address] [place] [address] [place] [address] Surgery 06/24/23 documented as of this encounter
--- OUTSIDE RECORDS SUMMARY | 2023-08-01 08:05 | XMS_ITS | Encounter Summary ---
Author Name Unknown Organization [place] Address [address] [place] [address] Care Team Providers Care Patient Safety Officer Name Role Phone Rusty Chilel Unavailable Brendan Larkin MD Unavailable Sandra Baird APRN KITCHEN HELP HANDYMAN Primary Care Prov ider Sandra Baird APRN KITCHEN HELP HANDYMAN Unavailable + Cynthia Smiley MD Unavailable Cynthia Smiley MD Unavailable [phone] Jagdish Sibley MD Unavailable [phone] Kevin Wells MD Unavailable [phone] Sandra Baird APRN KITCHEN HELP HANDYMAN Unavailable + Chaay Mora Unavailable Unavailable Ariel Mae [facility] Unavailable Unavailable Tu Briscoe MD Unavailable [phone] Reason for Visit * Reason Onset Date Comments Patient Request for Note/Letter 10/06/2020 Encounter Details Date Type Department Care Team (Late st Contact Info) Description 10/06/2020 MyC Medical Advice [facility] [address] [place] [address] Sandra Baird APRN KITCHEN HELP HANDYMAN [address] [place] [address] Patient Request for Note/Letter Social History Tobacco Use Types Packs/Day Years [...] encounter Miscellaneous Notes * Telephone Encounter - Misty Rodriguez RN - 10/07/2020 11:50 AM CDT [employer] message sent Misty Rodriguez RN [facility] * Telephone Encounter - Sandra Baird APRN CNP - 10/07/2020 11:38 AM CDT Please call to schedule visit - either virtual or in clinic - to discuss. No prior treatment or plan for migraines reviewed. Would be happy to write letter after conversation. ThanksAnastacia CPNP * Telephone Encounter - Misty Rodriguez RN - 10/07/2020 10:31 AM CDT No Dx of migraine listed on problem list. Please advise if patient should schedule to discuss her request for a work letter or if she should have an appointment when she experiences migraines for assessment and letter then Misty Rodriguez RN [facility] documented in this encounter Plan of Treatment Upcoming Encounters Date Type Department Care Team (Late st Contact Info) Description 10/29/2023 2:40 PM CDT Office Visit [facility] Plastic and Reconstructive Surgery [address] [place] [phone] Jagdish Sibley MD [address] [place], [place] [address] 11/20/2023 3:45 PM CDT Office Visit [facility] Plastic and Reconstructive Surgery [address] [phone] [place] [address] [place] [address] documented as of this encounter Visit Diagnoses Not on filedocumented in this encounter Additional Health Concerns Infection Onset Date Last Indicated Resolved Time Rule Out C-difficile 09/24/2021 09/24/2021 022 4:45 PM CDT Assessment Noted Time PHQ-9 Depression Total Score: 14 020 5:59 PM METER TESTER PRIMARY documented as of this encounter Care Teams Patient Safety Officer Relationship Specialty Start Date End Date Sandra Baird APRN KITCHEN HELP HANDYMAN [address] [place] [address] PCP - General Family Medicine 06/10/20 Rusty Chilel Specialty Relief Captain Plastic Surgery 02/04/20 Brendan Larkin MD [address] [place] [address] Plastic Surgery 05/09/20 Sandra Baird APRN KITCHEN HELP HANDYMAN [address] [place] [address] Assigned PCP 06/26/20 01/11/23 Cynthia Smiley MD 420 [facility] [address] [place] [address] Plastic Surgery 07/26/20 Cynthia Smiley MD 420 [facility] [address] [place] [address] Assigned Pediatric Specialist Provider 07/31/20 01/26/22 Jagdish Sibely MD [address] [place], [place] 074095 Assigned Surgical Provider 01/08/21 [place] [address] [place] [address] [id number] Assigned PCP 01/12/23 03/22/23 Sandra Baird APRN KITCHEN HELP HANDYMAN [address] [place] [address] Assigned PCP 03/23/23 Chaya Mora Specialty Relief Captain 06/24/23 Ariel Mae LGSW Roller Inspector 06/24/23 Tu Briscoe MD 420 [facility] [place] [address] Surgery 06/24/23 documented as of this encounter
--- OUTSIDE RECORDS SUMMARY | 2023-08-01 08:05 | XMS_ITS | Encounter Summary ---
Author Name Unknown Organization [place] Address [address] [place] [address] Care Team Providers Care Director Investor Relations Name Role Phone Rusty Chilel Unavailable Brendan Larkin MD Unavailable Sandra Baird APRN DECKHAND MAINTENANCE Primary Care Prov ider Sandra Baird APRN DECKHAND MAINTENANCE Unavailable + Cynthia Smiley MD Unavailable [phone] Cynthia Smiley MD Unavailable [phone] Jagdish Sibley MD Unavailable [phone] Kevin Wells MD Unavailable [phone] Sandra Baird APRN DECKHAND MAINTENANCE Unavailable + Chaya Mora Unavailable Unavailable Ariel Mae [facility] Unavailable Unavailable Tu Briscoe MD Unavailable [phone] Reason for Visit * Reason Onset Date Comments Refill Request 04/07/2021 Encounter Details Date Type Department Care Team (Late st Contact Info) Description 04/07/2021 [facility] [address] [place] [address] Sandra Baird APRN DECKHAND MAINTENANCE [address] [place] [address] Refill Request Social History Tobacco [...] COVID-19? No / Unsure 04/08/2021 7:46 PM MEDICAL DIR documented as of this encounter Plan of Treatment Upcoming Encounters Date Type Department Care Team (Late st Contact Info) Description 10/29/2023 2:40 PM CDT Office Visit [facility] Plastic and Reconstructive Surgery Clinic [address] [phone] Jagdish Sibley MD [address] [place] [address] 134805 11/20/2023 3:45 PM CDT Office Visit [facility] Plastic and Reconstructive Surgery [address] [phone] [place] [address] PLASTICS AND ORTHO [place], [place] [address] documented as of this encounter Visit Diagnoses Not on filedocumented in this encounter Additional Health Concerns Infection Onset Date Last Indicated Resolved Time Rule Out C-difficile 09/24/2021 09/24/2021 022 4:45 PM CDT Assessment Noted Time PHQ-9 Depression Total Score: 7 02/18/20 21 12:52 PM CDT documented as of this encounter Care Teams Director Investor Relations Relationship Specialty Start Date End Date Sandra Baird APRN DECKHAND MAINTENANCE [address] [address] [address] PCP - General Family Medicine 06/10/20 Rusty Chilel Specialty Bowling Pin Refinisher Plastic Surgery 02/04/20 Brendan Larkin MD [address] [place] [address] Plastic Surgery 05/09/20 Sandra Baird APRN DECKHAND MAINTENANCE [address] [address] [address] Assigned PCP 06/26/20 01/11/23 Cynthia Smiley MD [address] [address] Plastic Surgery 07/26/20 Cynthia Smiley MD [address] [place] [address] Assigned Pediatric Specialist Provider 07/31/20 01/26/22 Jagdish Sibley MD [address] [place] [address] 988995 Assigned Surgical Provider 01/08/21 Kevin Wells MD [address] [place] [address] 979742 Assigned PCP 01/12/23 03/22/23 Sandra Baird APRN DECKHAND MAINTENANCE [address] [address] [address] Assigned PCP 03/23/23 Chaya Mora Specialty Bowling Pin Refinisher 06/24/23 Ariel Mae LGSW Early Childhood Coordinator 06/24/23 Tu Briscoe MD [address] [place] [address] [place] [address] MD Surgery 06/24/23 documented as of this encounter
--- OUTSIDE RECORDS SUMMARY | 2023-08-01 08:05 | XMS_ITS | Encounter Summary ---
Author Name Unknown Organization [place] Address [address] [place] [address]. [place] [address] Care Team Providers Care Catering Cook Name Role Phone Rusty Chilel Unavailable Brendan Larkin MD Unavailable Sandra Baird APRN PROVIDER ENGAGEMENT EXECUTIVE Primary Care Prov ider Sandra Baird APRN PROVIDER ENGAGEMENT EXECUTIVE Unavailable + Cynthia Smiley MD Unavailable [phone] Cynthia Smiley MD Unavailable [phone] Jagdish Sibley MD Unavailable [phone] Kevin Wells MD Unavailable Sandra Baird APRN PROVIDER ENGAGEMENT EXECUTIVE Unavailable + Chaya Mora Unavailable Unavailable Ariel Mae [facility] Unavailable Unavailable Tu Briscoe MD Unavailable [phone] Encounter Details Date Type Department Care Team (Late st Contact Info) Description 01/09/2021 MyC Medical Advice [facility] [address] [place] [address] Sandra Baird APRN PROVIDER ENGAGEMENT EXECUTIVE [address] [place] [address] Social History Tobacco Use Types Packs/Day [...] 10/29/2023 2:40 PM CDT Office Visit [facility] Plastic and Reconstructive Surgery [address] [phone] Jagdish Sibley MD [address] [place] [address] 11/20/2023 3:45 PM CDT Office Visit [facility] Plastic and Reconstructive Surgery [address] [phone] [place] [address] [address] PLASTICS AND ORTHO [place], [place] [address] documented as of this encounter Visit Diagnoses Not on filedocumented in this encounter Additional Health Concerns Infection Onset Date Last Indicated Resolved Time Rule Out C-difficile 09/24/2021 09/24/2021 022 4:45 PM CDT Assessment Noted Time PHQ-9 Depression Total Score: 14 020 5:59 PM MECHANICAL ASSEMBLY documented as of this encounter Care Teams Catering Cook Relationship Specialty Start Date End Date Sandra Baird APRN PROVIDER ENGAGEMENT EXECUTIVE [address] [address] [address] PCP - General Family Medicine 06/10/20 Rusty Chilel Specialty Travelers' Aid Worker Plastic Surgery 02/04/20 Brendan Larkin MD [address] [place] [address] Plastic Surgery 05/09/20 Sandra Baird APRN PROVIDER ENGAGEMENT EXECUTIVE [address] [address] [address] Assigned PCP 06/26/20 01/11/23 Cynthia Smiley MD [address] [address] Plastic Surgery 07/26/20 Cynthia Smiley MD [address] [address] Assigned Pediatric Specialist Provider 07/31/20 01/26/22 Jagdish Sibley MD [address] [place], [place] 119375 Assigned Surgical Provider 01/08/21 [place] [address] [place] [address] Assigned PCP 01/12/23 03/22/23 Sandra Baird APRN PROVIDER ENGAGEMENT EXECUTIVE [address] [address] [address] Assigned PCP 03/23/23 Chaya Mora Specialty Travelers' Aid Worker 06/24/23 Ariel Mae LGSW Wood Tool Maker 06/24/23 Tu Briscoe MD [address] [place] [address] [place] [address] Surgery 06/24/23 documented as of this encounter
--- OUTSIDE RECORDS SUMMARY | 2023-08-01 08:05 | XMS_ITS | Encounter Summary ---
Author Name Unknown Organization [place] Address [address] [place] [address] Care Team Providers Care Physical Education Professor Name Role Phone Rusty Chilel Unavailable Brendan Larkin MD Unavailable MassimSandra johnson APRN CARE AIDE Primary Care Prov ider Sandra Baird APRN CARE AIDE Unavailable + Cynthia Smiley MD Unavailable [phone] Cynthia Smilye MD Unavailable [phone] Jagdish Sibley MD Unavailable [phone] Kevin Wells MD Unavailable Sandra Baird APRN CARE AIDE Unavailable + Chaya Mora Unavailable Unavailable Ariel Mae [facility] Unavailable Unavailable Tu Briscoe MD Unavailable [phone] Encounter Details Date Type Department Care Team (Late st Contact Info) Description 02/17/2021 Matthew Medical Advice [facility] Urology Clinic [address] [place] [address] Jagdish Sibley MD [address] [place] [address] Social History Tobacco Use Types Packs/Day [...] Description 10/29/2023 2:40 PM CDT Office Visit [facility] Plastic and Reconstructive Surgery [address] [phone] Jagdish Sibley MD [address] [place] [address]165 11/20/2023 3:45 PM CDT Office Visit [facility] Plastic and Reconstructive Surgery [address] [phone] [place] [address] [address] [place] [address] documented as of this encounter Visit Diagnoses Not on filedocumented in this encounter Additional Health Concerns Infection Onset Date Last Indicated Resolved Time Rule Out C-difficile 09/24/2021 09/24/2021 022 4:45 PM CDT Assessment Noted Time PHQ-9 Depression Total Score: 7 02/18/20 21 12:52 PM CDT documented as of this encounter Care Teams Physical Education Professor Relationship Specialty Start Date End Date Sandra Baird APRN CARE AIDE [address] [place] [address] PCP - General Family Medicine 06/10/20 Rusty Chilel Specialty Arcade Attendant Plastic Surgery 02/04/20 Brendan Larkin MD [address] [place] [address] Plastic Surgery 05/09/20 Sandra Baird APRN CARE AIDE [address] [place] [address] Assigned PCP 06/26/20 01/11/23 Cynthia Smiley MD [address] [place] [address] 824935 Plastic Surgery 07/26/20 Cynthia Smiley MD [address] [place] [address] [id number] Assigned Pediatric Specialist Provider 07/31/20 01/26/22 Jgadish Sibley MD [address] [place], [place] 622735 Assigned Surgical Provider 01/08/21 [place] [address] [place] [address] 957592 Assigned PCP 01/12/23 03/22/23 Sandra Baird APRN CARE AIDE [address] [place] [address] Assigned PCP 03/23/23 Chaya Mora Specialty Arcade Attendant 06/24/23 Ariel Mae [facility] Oil Burner Mechanic 06/24/23 Tu Briscoe MD 420 [facility] [place] [address] Surgery 06/24/23 documented as of this encounter
--- OUTSIDE RECORDS SUMMARY | 2023-08-01 08:05 | XMS_ITS | Encounter Summary ---
Author Name Unknown Organization [place] Address [address] [place] [address] Care Team Providers Care Machine Pecan Gatherer Name Role Phone Rusty Chilel Unavailable Brendan Larkin MD Unavailable MassimSandra johnson APRN CALL CENTER SUPPORT REPRESENTATIVE Primary Care Prov ider Sandra Baird APRN CALL CENTER SUPPORT REPRESENTATIVE Unavailable + Cynthia Smiley MD Unavailable [phone] Cynthia Smiley MD Unavailable [phone] Jagdish Sibley MD Unavailable [phone] Kevin Wells MD Unavailable Sandra Baird APRN CALL CENTER SUPPORT REPRESENTATIVE Unavailable + Chaya Mora Unavailable Unavailable Ariel Mae [facility] Unavailable Unavailable Tu Briscoe MD Unavailable [phone] Encounter Details Date Type Department Care Team (Late st Contact Info) Description 01/07/2021 [facility] Plastic and Reconstructive Surgery Clinic [address] [place] [address] Jagdish Sibley MD [address] [place] [address] Social History Tobacco Use Types Packs/Day Years Used Date Smoking Tobacco: Never Smokeless Tobacco: Never Alcohol Use Standard Drinks/Week Comments Never 0 (1 standard drink = 0.6 oz pur e alcohol) AUDIT-C Answer Date Recorded Q1: How often do you have a drink containing alc ohol? Never 02/04/2020 Average Number of Drinks Not on file Frequency of Binge Drinking Not on file [...] Description 10/29/2023 2:40 PM CDT Office Visit [facility] Plastic and Reconstructive Surgery [address] [phone] Jagdish Sibley MD [address] [place] [address] [id number] 11/20/2023 3:45 PM CDT Office Visit [facility] Plastic and Reconstructive Surgery [address] [phone] [place] [address] [facility] [address] PLASTICS AND ORTHO [place], [place] [address] documented as of this encounter Visit Diagnoses Not on filedocumented in this encounter Additional Health Concerns Infection Onset Date Last Indicated Resolved Time Rule Out C-difficile 09/24/2021 09/24/2021 022 4:45 PM CDT Assessment Noted Time PHQ-9 Depression Total Score: 14 020 5:59 PM PERMANENT WAVER documented as of this encounter Care Teams Machine Pecan Gatherer Relationship Specialty Start Date End Date Sandra Baird APRN CALL CENTER SUPPORT REPRESENTATIVE [address] [address] [address] PCP - General Family Medicine 06/10/20 Rusty Chilel Specialty Drums Teacher Plastic Surgery 02/04/20 Brendan Larkin MD [address] [place] [address] Plastic Surgery 05/09/20 Sandra Baird APRN CALL CENTER SUPPORT REPRESENTATIVE [address] [address] [address] Assigned PCP 06/26/20 01/11/23 Cynthia Smiley MD [address] [address] Plastic Surgery 07/26/20 Cynthia Smiley MD [address] [address] Assigned Pediatric Specialist Provider 07/31/20 01/26/22 Jagdish Sibley MD 909 [place] [address] Assigned Surgical Provider 01/08/21 Kevin Wells MD [address] [place] [address] Assigned PCP 01/12/23 03/22/23 Sandra Baird APRN CALL CENTER SUPPORT REPRESENTATIVE [address] [address] [address] Assigned PCP 03/23/23 Chaya Mora Specialty Drums Teacher 06/24/23 Ariel Mae LGSW Cabin Cleaning Supervisor 06/24/23 Tu Briscoe MD [address] [place] [address] [place] [address] Surgery 06/24/23 documented as of this encounter
--- OUTSIDE RECORDS SUMMARY | 2023-08-01 08:05 | XMS_ITS | Encounter Summary ---
Author Name Unknown Organization [place] Address [address] [place] [address] Care Team Providers Care Trader Fixed Income Name Role Phone Getachew Rusty Unavailable Brendan Larkin MD Unavailable MassimSandra johnson APRN GREEN BUILDING ENGINEER Primary Care Prov ider Sandra Baird APRN GREEN BUILDING ENGINEER Unavailable + Cynthia Smiley MD Unavailable [phone] Cynthia Smiley MD Unavailable [phone] Jagdish Sibley MD Unavailable [phone] Kevin Wells MD Unavailable [phone] Sandra Baird APRN GREEN BUILDING ENGINEER Unavailable + Chaya Mora Unavailable Unavailable Ariel Mae [facility] Unavailable Unavailable Tu Briscoe MD Unavailable [phone] Encounter Details Date Type Department Care Team (Late st Contact Info) Description 09/17/2020 MyC Medical Advice Initial Department Rusty Chilel Social History Tobacco Use Types Packs/Day Years [...] Description 10/29/2023 2:40 PM CDT Office Visit [facility] Plastic and Reconstructive Surgery [address] [phone] Jagdish Sibley MD [address] [place] [address] 605685 11/20/2023 3:45 PM CDT Office Visit [facility] Plastic and Reconstructive Surgery [address] [phone] [place] [address] [place] [address] documented as of this encounter Visit Diagnoses Not on filedocumented in this encounter Additional Health Concerns Infection Onset Date Last Indicated Resolved Time Rule Out C-difficile 09/24/2021 09/24/2021 022 4:45 PM CDT Assessment Noted Time PHQ-9 Depression Total Score: 14 020 5:59 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 documented as of this encounter Care Teams Trader Fixed Income Relationship Specialty Start Date End Date Sandra Baird APRN GREEN BUILDING ENGINEER [address] [place] [address] PCP - General Family Medicine 06/10/20 Rusty Chilel Specialty Research And Development Researcher Plastic Surgery 02/04/20 Brendan Larkin MD [address] [place] [address] Plastic Surgery 05/09/20 Sandra Baird APRN GREEN BUILDING ENGINEER [address] [place] [address] Assigned PCP 06/26/20 01/11/23 Cynthia Smiley MD [address] [address] Plastic Surgery 07/26/20 Cynthia Smiley MD [address] 123445 Assigned Pediatric Specialist Provider 07/31/20 01/26/22 Jagdish Sibley MD [address] [place], [place] [address] Assigned Surgical Provider 01/08/21 [place] [address] [place] [address] 380262 Assigned PCP 01/12/23 03/22/23 Sandra Baird APRN GREEN BUILDING ENGINEER [address] [place] [address] Assigned PCP 03/23/23 Chaya Mora Specialty Research And Development Researcher 06/24/23 Ariel Mae LGSW Marking Room Supervisor 06/24/23 Tu Briscoe MD 420 [facility] [place]MENT [place] [address] Surgery 06/24/23 documented as of this encounter
== END 2023-07-27 18:32 | disposition home or self-care (01) ==
LOC: AMB 08-01 08:02
PROVIDERS: PCP Family Medicine; Visit Provider Family Medicine
DX: T14.90XS Injury, unspecified, sequela (principal); V43.92XA Unspecified car occupant injured in collision with other type car in traffic accident, initial encounter; Y92.414 Local residential or business street as the place of occurrence of the external cause
CPT/HCPCS: A0998